=== PATIENT | male | born 1965 | race Caucasian/White ===

== ENCOUNTER 2023-02-06 14:02 | Outpatient (OUT) | payer OTHER, SELFPAY ==
--- NOTE | 2023-02-06 | CONS_ITS ---
CONSULTATION DATE: ??02/06/2023 TO:? Phong Dominguez PA-C CHIEF COMPLAINT:? Includes severe right sided neck pain. HISTORY OF PRESENT ILLNESS:? Review of systems, past medical/surgical history were obtained and documented on the health questionnaire and is available upon request. The patient is 57 years old.? He reports having pain in the above mentioned area since at least July of 2022.? It is described as a severe pressure-like pain with a sharp component.? It is fairly constant.? Seems to increase with activities such as lifting maneuvers, pushing/pulling maneuvers and cervical extension.? He feels most comfortable in the semi-recumbent position.? He is also receiving massage therapy and acupuncture.? Denies any change in bowel and bladder habits or new sensorimotor changes in the upper extremities.? EXAMINATION:? Notable for patient having no clinical radiculopathy or myelopathy involving the lower extremities on today?s visit.? Patient did have severe pain with cervical facet loading maneuvers on the right side at C2-3, C3-4 with associated myofascial spasm of the cervical paravertebral muscles.? IMPRESSION:? Our impression is patient appears to have chronic pain secondary to cervical spondylosis, with facet joint loading pain clinically on the right side at C2-3, C3-4 and associated myofascial spasm. RECOMMENDATIONS:? I have recommended he start Mobic 15 mg daily.? In the past, he has tried naproxen as well as ibuprofen.? He reports he is able to tolerate the naproxen better than ibuprofen, but at times it makes his legs swell and is limited in dosing secondary to the same.? He also reports he is on gabapentin 300 mg b.i.d. and baclofen 10 mg daily p.r.n.? I have asked him to increase his gabapentin to 300 mg t.i.d. and increase his baclofen to 10 mg t.i.d. as tolerated, and to proceed with a diagnostic right sided C2-3, C3-4 facet joint injection under fluoroscopic guidance.? I have asked him to discontinue naproxen and we will initiate aquatic therapy. As part of providing excellent, safe, comprehensive care, the following was completed at our patient's visit: 1. A medication reconciliation and review to ensure accurate knowledge of current/active medications, including asking our patients to inform us about any scya-[id number]-sougdpi medications or herbal remedies/nutritional supplements/alternative remedies. 2. A review to specifically ensure our patients have had annual screening for: elevated body mass index (BMI, see intake chart for exact total), tobacco use, screening for depression, and screening for unhealthy alcohol use.? When screening is concerning, patients are provided with education and the specific recommendation to discuss the concerning health issue and treatment options with their primary care provider. SEBASTIÁN
== END 2023-02-06 14:03 | disposition home or self-care (01) ==
LOC: PM 14:13
PROVIDERS: PCP Physician Assistant; Visit Provider Anesthesiology Pain Medicine
DX: G89.29 Other chronic pain (principal); M47.812 Spondylosis without myelopathy or radiculopathy, cervical region; M54.2 Cervicalgia
CPT/HCPCS: G0463

== ENCOUNTER 2024-10-30 20:11 | Emergency (ER) | payer OTHER, SELFPAY ==
[2024-10-30 20:20] VITALS: BP 139/100; PULSE 87; TEMP 36.4; O2SAT 99; BMI 21.3
--- NOTE | 2024-10-30 20:23 | ED_ITS ---
HPI HPI - General Adult General Chief complaint: Extremity Injury, Lower Stated complaint: FOOT INJURY Time Seen by Provider: 10/30/24 20:20 History of Present Illness HPI narrative: 59-year-old male presents for pain of the dorsum of his right foot. He was sepulveda ging a flat tire in his slippers and when he took the flat tire off it tipped over and fell onto the dorsum of his right foot. No other injury was sustained. He does not complain of pain in the ankle and it hurts more when he puts weight on it. He noted some bruising. Related Data Home Medications ?Medication ?Instructions ?Recorded ?Confirmed albuterol sulfate 90 mcg/actuation 2 inh inhalation Q4H PRN diff 02/06/23 02/06/23 aerosol inhaler (Ventolin HFA) breathing baclofen 10 mg tablet 10 mg PO TID 02/06/23 10/30/24 losartan 50 mg tablet 50 mg PO DAILY 02/06/23 10/30/24 meloxicam 15 mg tablet 15 mg PO DAILY 02/06/23 10/30/24 montelukast 10 mg tablet 10 mg PO DAILY 02/06/23 02/06/23 omeprazole 20 mg capsule,delayed 20 mg PO DAILY 02/06/23 10/30/24 release losartan 100 mg tablet mg 10/30/24 Previous Rx's ?Medication ?Instructions ?Recorded acetaminophen 300 mg-codeine 30 mg 1 tab PO Q6H PRN pain 5 days #20 10/30/24 tablet tabs Allergies Allergy/AdvReac Type Severity Reaction Status Date / Time Sulfa (Sulfonamide Allergy Verified 02/06/23 14:41 Antibiotics) Opioid HPI Opioid Management Most Recent Opioid Data: No Data to Display Review of Systems ROS Narrative A ten point review of systems is negative except as noted above. PFSH PFSH Social History Little interest or pleasure in doing things: not at all Feeling down, depressed, or hopeless: not at all Exam Narrative Exam Narrative: Nurses note and vital signs reviewed and patient is not hypoxic. General: The patient appears in no apparent distress. Patient appears uncomfortable Skin: Warm, dry, no pallor noted. There is no rash noted. Head: Normocephalic, atraumatic Eye: Normal conjunctiva, no drainage Ears, Nose, Mouth, and Throat: oral mucosa is moist. Nares patent. Mouth without vesicles. Ear canals patent. Tm's without Erythema Cardiovascular: Regular Rate and Rhythm Respiratory: Patient is in no distress, no accessory muscle use, lungs are clear to auscultation, no wheezing, rales or rhonchi Back: non-tender GI: Soft and nontender Musculoskeletal: The right foot is examined. The ankle is nontender. He has bruising on the dorsum of his right foot. Skin intact. Tenderness also present. Neurological: A&O, normal speech Psychiatric: Cooperative Constitutional Vital Signs, click to edit/add: Last Vital Signs Temp 97.6 F 10/30/24 20:20 Pulse 87 10/30/24 20:20 Resp 18 10/30/24 20:20 BP 139/100 H 10/30/24 20:20 Pulse Ox 99 10/30/24 20:20 O2 Del Method Room Air 10/30/24 20:20 Course Vital Signs Vital signs: Vital Signs Temperature 97.6 F 10/30/24 20:20 Pulse Rate 87 10/30/24 20:20 Respiratory Rate 18 10/30/24 20:20 Blood Pressure 139/100 H 10/30/24 20:20 Pulse Oximetry 99 10/30/24 20:20 Oxygen Delivery Method Room Air 10/30/24 20:20 Temperature 97.6 F 10/30/24 20:20 Pulse Rate 87 10/30/24 20:20 Respiratory Rate 18 10/30/24 20:20 Blood Pressure 139/100 H 10/30/24 20:20 Pulse Oximetry 99 10/30/24 20:20 Oxygen Delivery Method Room Air 10/30/24 20:20 Medical Decision Making [facility] Narrative Medical decision making narrative: Fourth metatarsal fractures identified, nondisplaced. He is placed in a walking boot, application checked by me and found to be appropriate, he is neurovascular intact. He was given Tylenol 3 here and prescribed same and referred to podiatry. Treatment diagnosis and follow-up were discussed with the patient. He has point tenderness over the distal fourth metatarsal area. Differential Diagnosis Differential Diagnosis: Contusion, fracture Imaging Data Right foot: Radiologist's impression: Dorsal soft tissue swelling overlying the metatarsal bones, possible nondisplaced fracture of the right fourth metatarsal neck Discharge Plan Discharge Chief Complaint: Extremity Injury, Lower Clinical Impression: Closed fracture of fourth metatarsal of right foot Patient Disposition: Home, Self-Care Time of Disposition Decision: 21:36 Condition: Good Mode of Transportation: Private Vehicle Prescriptions / Home Meds: New acetaminophen-codeine 300-30 mg tablet 1 tab PO Q6H PRN (Reason: pain) 5 Days Qty: 20 0RF No Action baclofen 10 mg tablet 10 mg PO TID losartan 50 mg tablet 50 mg PO DAILY omeprazole 20 mg capsule,delayed release(DR/EC) 20 mg PO DAILY albuterol sulfate [Ventolin HFA] 90 mcg/actuation HFA aerosol inhaler 2 inh inhalation Q4H PRN (Reason: diff breathing) montelukast 10 mg tablet 10 mg PO DAILY meloxicam 15 mg tablet 15 mg PO DAILY losartan 100 mg tablet Print Language: Djiboutian Instructions: Foot Fracture in Adults (ED) Additional Instructions: Elevate your foot while you are at home. Apply ice. Referrals: Dajuan Strauss DPM [Physician] - 1 week Phong Dominguez [Primary Care Provider] - 1 week
[2024-10-30] MEDS: ACETAMINOPHEN 300 MG/ 30 MG CODEINE TABLET 1 TAB PO (21:43)
== END 2024-10-30 21:55 | disposition home or self-care (01) ==
PROVIDERS: Emergency Provider Emergency Medicine; PCP Physician Assistant
DX: S92.344A Nondisplaced fracture of fourth metatarsal bone, right foot, initial encounter for closed fracture (principal); W22.8XXA Striking against or struck by other objects, initial encounter
CPT/HCPCS: 73630; 99284

== ENCOUNTER 2025-06-15 07:25 | Emergency (ER) | payer OTHER, SELFPAY ==
--- OUTSIDE RECORDS SUMMARY | 2025-01-26 04:30 | XMS_ITS ---
Author Organization [facility] vices Address [address] [place], [place] [id number] Care Team Providers Care [employer] Vault Supervisor Name Role Phone Shanelle Hooks Primary Care Provider REASON FOR VISIT 4 week Pain Social History Sex Assigned At : Social History Observation Description Sex Assigned At Male Encounters Encounter Location Date Provider Diagnosis Main [address] [place], [place] [id number] 01/26/2025 Shanelle Hooks Plan Of Treatment Next Appt Details Provider Name:Shanelle bonilla, 07/20/2025 08:15:00 AM, [address], [id number], Progress Notes * Freddy MITCHELL CDOB:[birth year] (60 yo M)Acc No.[id number]:01/26/2025 Medical Note Patient: Dwayne JOSEPHFreddy Donnelly :?Shanelle Hooks NP-CDOB:1965???Age:59 Y???Sex:MaleDate:01/26/2025Phone:[phone]:[address] [place] [id number] Subjective: * Chief Complaints: * 1 . 4 week Pain. * Medical History: Objective: * Vitals: Assessment: Plan: * Treatment: * Billing Information: * Visit Code: * Procedure Codes: * Electronic signature of CELESTE Bolanos on 06/15/2025 at 07:33 AM EST Sign off status: Pending * Provider: CELESTE Akers Date: 0 01/26/2025 Generated for Printing/Faxing/eTransmitting on:?06/15/2025 07:33 AM EST
--- OUTSIDE RECORDS SUMMARY | 2025-06-14 15:06 | XMS_ITS | Encounter Summary ---
Author Organization [facility] tem Address [id number] [address] [place] [address] Care Team Providers Care Die Sinker Name Role Phone Services, [facility] Primary Care Provider Reason for Visit * ReasonCommentsBack PainPt c/o left sided lower back pain that radiates down into his hip. However he does also state that his stream of urine does not seem to be as strong as normal Encounter Details DateTypeDepartmentCare Team (Latest Contact Info)Tgfugbluvhp82/02/2025 3:06 PM EST - 06/14/2025 5:18 PM [facility] - Emergency [address] [place] [address] Rufino Sims, [address] [place] [address] Acute left-sided low back pain with left-sided sciatica (Primary Dx) Discharge Disposition: Home Social History Tobacco UseTypesPacks/DayYears UsedDateSmoking Tobacco: FormerSmokeless Tobacco: NeverAlcohol UseStandard Drinks/WeekCommentsNot Currently0 (1 standard drink = 0.6 oz pure alcohol)AUDIT-CAnswerDate RecordedFrequency of Alcohol Consumption Never11/28/2018Average Number of DrinksNot on file11/28/2018Frequency of Binge DrinkingNot on file11/28/2018ChildcareAnswerDate RecordedChildcareUnknown 01/13/2019EmploymentAnswerDate CxbsxdhuVwjeqireerNaadbts68/03/2019Hunger ScreeningAnswerDate RecordedWithin the past 12 months we worried whether our food would run out before we got money to buy more.Never True06/14/2025Within the past 12 months the food we bought just didn't last and we didn't have money to get more.Never True06/14/2025Purpose - LifeAnswerDate RecordedPurpose and direction in mehmMkelgxu33/11/2021ex and Gender InformationValueDate Recorded Sex Assigned at BirthNot on fileLegal XcdPdkx8303/18/2015 11:32 AM EDTGender IdentityNot on fileSexual OrientationNot on filedocumented as of this encounter Last Filed Vital Signs Vital SignReadingTime TakenCommentsBlood Mcqcdiij887/9506/14/2025 3:05 PM EST Yqzvd521206/14/2025 3:05 PM INUWhuefxfxqsr93.8 ??C (98.3 ??F)06/14/2025 3:05 PM ESTRespiratory Gjto601808/14/2024 3:05 PM ESTOxygen Rngupstkbu17%06/14/2025 3:05 PM ESTInhaled Oxygen Concentration--Xspsed07.1 kg (148 lb)06/14/2025 3:05 PM EST Ydvbkp533.3 cm (5' 11 )06/14/2025 3:05 PM ESTBody Mass Index20.6406/14/2025 3:05 PM ESTdocumented in this encounter Discharge Instructions * Discharge Instructions* Kyree Wells MD - 06/14/2025 4:46 PM EST Please take your medications as prescribed. Please take ibuprofen or acetaminophen as needed for pain and/or fever. Please continue oral hydration as well as tolerated. Please follow-up with your primary care provider as needed. Please return to the emergency department if you have new or worsening symptoms. Please call the emergency department if you have any questions or concerns. Thank you for allowing me to participate in your care. * Attachments The following attachments cannot be sent through Care Everywhere. * Low back pain ??? Discharge instructions (Romanian) * Sciatica ??? ED discharge instructions (Romanian) documented in this encounter Medications at Time of Discharge MedicationSigDispense QuantityRefillsLast FilledStart DateEnd Date albuterol (PROVENTIL HFA;VENTOLIN HFA) 90 mcg/actuation inhaler Inhale 2 puffs every 6 (six) hours as needed for wheezing. budesonide-formoterol (SYMBICORT) 160-4.5 mcg/actuation inhaler Inhale 2 puffs 2 (two) times a day. chlorthalidone (HYGROTON) 25 mg tablet Take 25 mg by mouth daily. cyclobenzaprine (FLEXERIL) 10 mg tablet Take 1 tablet (10 mg total) by mouth 2 (two) times a day as needed for muscle spasms. 15 tablet 06/14/2025 lidocaine (SALONPAS) 4 % Place 1 patch on the skin daily. 30 patch 06/14/2025 naproxen (NAPROSYN) 500 mg tablet Take 1 tablet (500 mg total) by mouth in the morning and 1 tablet (500 mg total) in the evening. Take with meals. 30 tablet 09/23/2024documented as of this encounter Plan of Treatment Not on file documented as of this encounter Procedures Procedure NamePriorityDate/TimeAssociated DiagnosisCommentsCT ABDOMEN AND PELVIS W VMOHSMKU35/02/2025 3:57 PM EST EXTRA TUBES BLUE BDZYibvrcn86/02/2025 3:35 PM EST EXTRA TFOJSKsiamyk68/02/2025 3:35 PM EST ER EXTRA URINE TAIPDSSZCZ38/02/2025 3:32 PM EST ER EXTRA URINE UPTUINUYFEZ18/02/2025 3:32 PM EST ER EXTRA IUOCLSDWQ23/02/2025 3:32 PM EST CBC WITH AUTO DJYSROWTWBGIKCCN75/02/2025 3:31 PM EST LIKPWCZQSD14/02/2025 3:31 PM EST COMPREHENSIVE METABOLIC XHTFSNJZQ25/02/2025 3:31 PM EST documented in this encounter Results * CT abdomen and pelvis with contrast (06/14/2025 3:57 PM EST)Anatomical Region LateralityModalityBody, Abdomen, Body CoveraN/AComputed TomographySpecimen (Source)Anatomical Location / LateralityCollection Method / VolumeCollection TimeReceived Time06/14/2025 4:03 PM EST Narrative 06/14/2025 4:05 PM EST STUDY: ABDOMEN AND PELVIS CT WITH CONTRAST CLINICAL HISTORY: Acute abdominal pain Low back pain, left lower abdominal pain, evaluate for stoneversus diverticulitis COMPARISON: 01/04/2025 TECHNIQUE: CT abdomen and pelvis was performed utilizing 5 mm axial reconstructions following the uneventful administration of 100 cc Omnipaque 300 nonionic intravenous contrast. Coronal and sagittalreformatted images were obtained and reviewed. Automated exposure control was utilized. FINDINGS: Abdomen: No pleural or pericardial effusion and lung bases. No lower lung consolidation. The liver, adrenal glands, pancreas and spleen appear unremarkable. Gallbladder is present cholelithiasis. Small bowel not dilated. There are no enlarged mesenteric or retroperitoneal lymph nodes. No renal collecting system dilatation. Small right renal cyst requiring no additional follow-up imaging. Pelvis: No free pelvic fluid. No enlarged pelvic lymph nodes. Urinary bladder grossly unremarkable. No vertebral body height loss. IMPRESSION: 1. No definitive acute abdominal or pelvic process. All CT scans at this facility use dose modulation, iterative reconstruction, and/or weight based dosing when appropriate to reduce radiation dose to as low as reasonably achievable. Finalized by Doug Gao MD on 06/14/2025 4:05 PM Procedure Note Doug Gao MD - 06/14/2025 STUDY: ABDOMEN AND PELVIS CT WITH CONTRAST CLINICAL HISTORY: Acute abdominal pain Low back pain, left lower abdominalpain, evaluate for stone versus diverticulitis COMPARISON: 01/04/2025 TECHNIQUE: CT abdomen and pelvis was performed utilizing 5 mm axial reconstructions following the uneventful administration of 100 ccOmnipaque 300 nonionic intravenous contrast. Coronal and sagittalreformatted images were obtained and reviewed. Automated exposure controlwas utilized. FINDINGS: Abdomen: No pleural or pericardial effusion and lung bases. No lower lung consolidation. The liver, adrenal glands, pancreas and spleen appear unremarkable. Gallbladder is present cholelithiasis. Small bowel not dilated. There are no enlarged mesenteric orretroperitoneal lymph nodes. No renal collecting system dilatation. Small right renal cyst requiring no additional follow-up imaging. Pelvis: No free pelvic fluid. No enlarged pelvic lymph nodes. Urinary bladdergrossly unremarkable. No vertebral body height loss. IMPRESSION: 1. No definitive acute abdominal or pelvic process. All CT scans at this facility use dose modulation, iterativereconstruction, and/or weight based dosing when appropriate to reduceradiation dose to as low as reasonably achievable. Finalized by Doug Gao MD on 06/14/2025 4:05 PM Authorizing ProviderResult TypeResult Ghada Sims DOIMG CT ORDERABLES Final Result * Light Blue Top (06/14/2025 3:35 PM EST)ComponentValueRef RangeTest Method Analysis TimePerformed AtPathologist SignatureExtra TubeAuto Resulted 06/14/2025 5:01 PM ESTPROScripps [facility]cy [facility] (Source) Anatomical Location / LateralityCollection Method / VolumeCollection Time Received TimeBloodVenous blood / Avngird2106/14/2025 3:35 PM EST06/14/2025 3:35 PM EST Narrative Authorizing ProviderResult TypeResult Ghada Sims DOLAB BLOOD ORDERABLESFinal ResultPerforming OrganizationAddressCity/State/ZIP CodePhone Number [address] [address], * Extra Urine [place] (06/14/2025 3:32 PM EST)ComponentValueRef RangeTest Method Analysis TimePerformed AtPathologist SignatureExtra TubeAuto Resulted 06/14/2025 5:01 PM ESTPROScripps [facility] (Source) Anatomical Location / LateralityCollection Method / VolumeCollection Time Received TimeUrineUrine specimen collection, clean catch / Rayjbrq7306/14/2025 3:32 PM EST06/14/2025 4:17 PM EST Narrative Authorizing ProviderResult TypeResult StatusRufino Sims DOURINE ORDERABLES Final ResultPerforming OrganizationAddressCity/State/ZIP CodePhone Number [address] [address], [place] * Extra Urine Culture (06/14/2025 3:32 PM EST)ComponentValueRef RangeTest Method Analysis TimePerformed AtPathologist SignatureExtra TubeAuto Resulted 06/14/2025 5:01 PM EST[facility] (Source) Anatomical Location / LateralityCollection Method / VolumeCollection Time Received TimeUrineUrine specimen collection, clean catch / Gnemqrc1306/14/2025 3:32 PM EST06/14/2025 4:17 PM EST Narrative Authorizing ProviderResult TypeResult StatusRobert W Sims DOURINE ORDERABLES Final ResultPerforming OrganizationAddressCity/State/ZIP CodePhone Number [address] [place] [address], [place] * Extra Urine (06/14/2025 3:32 PM EST)ComponentValueRef RangeTest MethodAnalysis TimePerformed AtPathologist SignatureExtra TubeAuto Ddjsmfah21/02/2025 5:01 PM ESTPROScripps [facility]cy Hospital (Source)Anatomical Location / LateralityCollection Method / VolumeCollection TimeReceived TimeUrineUrine specimen collection, clean catch / Nyckosb5506/14/2025 3:32 PM EST06/14/2025 4:17 PM EST Narrative Authorizing ProviderResult TypeResult StatusRobert W Sims DOURINE ORDERABLES Final ResultPerforming OrganizationAddressCity/State/ZIP CodePhone Number [address] [place] [address], * Lipase (06/14/2025 3:31 PM EST)ComponentValueRef RangeTest MethodAnalysis Time Performed AtPathologist PonrpkfwiYPAXMT3997 - 40 U/L108/14/2024 3:50 PM EST [facility] (Source)Anatomical Location / LateralityCollection Method / VolumeCollection TimeReceived TimeBloodVenous blood / UnknownVenipuncture / Fdqfocn0106/14/2025 3:31 PM EST06/14/2025 3:34 PM EST Narrative Authorizing ProviderResult TypeResult StatusRobert W Sims DOLAB BLOOD ORDERABLESFinal ResultPerforming OrganizationAddressCity/State/ZIP CodePhone Number [facility] [address] [place] [address], * Comprehensive metabolic panel (06/14/2025 3:31 PM EST)ComponentValueRef Range Test MethodAnalysis TimePerformed AtPathologist KmbnewoatTAOSUT360357 - 146 mmol/L108/14/2024 3:53 PM ESTCINCINNATI VA MEDICAL CENTERPOTASSIUM3.93.5 - 5.0 mmol/L108/14/2024 3:53 PM ESTCINCINNATI VA MEDICAL CENTERCHLORIDE [address] - 109 mmol/L108/14/2024 3:53 PM [facility] [place] VIZRHFW1524 - 32 mmol/L108/14/2024 3:53 PM ESTCINCINNATI VA MEDICAL CENTERANION WLL056 - 15 mmol/L108/14/2024 3:53 PM ESTCINCINNATI VA MEDICAL CENTERBLOOD UREA ZNIJZUCF05 - 27 mg/dL06/14/2025 3:53 PM EST [facility]ENTERCREATININE0.830.70 - 1.20 mg/dL06/14/2025 3:53 PM [facility]ENTERComment:METHOD TRACEABLE TO IDMS LTIHYQDHJXWYACB0367 - 99 mg/dL06/14/2025 3:53 PM [facility] CENTERCALCIUM9.18.5 - 10.5 mg/dL06/14/2025 3:53 PM [facility] CENTERTOTAL PROTEIN7.26.0 - 8.0 g/dL06/14/2025 3:53 PM ESTCINCINNATI VA MEDICAL CENTERALBUMIN4.33.2 - 5.3 g/dL06/14/2025 3:53 PM EST [facility]ENTERALKALINE GUOYVVGNWYT9277 - 130 U/L 06/14/2025 3:53 PM ESTCINCINNATI VA MEDICAL CENTERAST25<=41 U/L 06/14/2025 3:53 PM ESTCINCINNATI VA MEDICAL CENTERALT16<=40 U/L 06/14/2025 3:53 PM ESTCINCINNATI VA MEDICAL CENTERBILIRUBIN,TOTAL0.30.3 - 1.2 mg/dL06/14/2025 3:53 PM ESTCINCINNATI VA MEDICAL CENTEREGFR Non- Race Dependent>90>=60 ml/min/1.73sq.m108/14/2024 3:53 PM [facility]ENTERComment: eGFR not reported due to non-numeric value for Creatinine. Reported eGFR is based on the CKD-EPI 2020 equation that does not use a race coefficient. Specimen (Source)Anatomical Location / LateralityCollection Method / Volume Collection TimeReceived TimeBloodVenous blood / UnknownVenipuncture / Unknown 06/14/2025 3:31 PM EST06/14/2025 3:34 PM EST Narrative Authorizing ProviderResult TypeResult StatusRobert W [facility] BLOOD ORDERABLESFinal ResultPerforming OrganizationAddressCity/State/ZIP CodePhone Number [facility] [address] [place] [address], * CBC auto differential (06/14/2025 3:31 PM EST)ComponentValueRef RangeTest MethodAnalysis TimePerformed AtPathologist SignatureWBC8.44 - 11 x10E9/L 06/14/2025 3:46 PM [facility] CENTERRBC Count4.654.1 - 5.7 X10E12/L108/14/2024 3:46 PM [facility] Uzodcsipuz76.313 - 17 g/dL06/14/2025 3:46 PM [facility] CENTERHematocrit43.839 - 50 %06/14/2025 3:46 PM ESTCINCINNATI VA MEDICAL CENTERMCV9480 - 100 fL06/14/2025 3:46 PM ESTCINCINNATI VA MEDICAL CENTERMCH32.827 - 34 pg06/14/2025 3:46 PM ESTCINCINNATI VA MEDICAL CENTERMCHC34.832 - 36 g/dL06/14/2025 3:46 PM [facility]ENTERRDW12.611.5 - 15 %06/14/2025 3:46 PM [facility] CENTERPlatelet Arncf352076 - 450 X10E9/L108/14/2024 3:46 PM EST [facility]ENTERMPV8.77 - 12 fL06/14/2025 3:46 PM EST [facility] HOSPITALNeutrophils %62.3%06/14/2025 3:46 PM EST [facility]ENTERLymphocytes %26.1%06/14/2025 3:46 PM EST [facility] HOSPITALMonocytes %7.2%06/14/2025 3:46 PM EST [facility] HOSPITALEosinophils %3.2%06/14/2025 3:46 PM EST [facility]ENTERBasophils %1.2%06/14/2025 3:46 PM EST [facility] CENTERNeutrophils Absolute (A)5.21.5 - 6.6 10*3/uL06/14/2025 3:46 PM ESTPROBREA COMMUNITY HOSPITALLymphocytes Absolute2.21.0 - 3.5 10*3/uL06/14/2025 3:46 PM ESTPROVA [facility]ENTER HOSPITALMonocytes Absolute0.60.0 - 0.9 10*3/uL06/14/2025 3:46 PM ESTPROVA [facility]ENTER HOSPITALEosinophils Absolute0.30.0 - 0.4 10*3/uL06/14/2025 3:46 PM ESTPROBREA COMMUNITY HOSPITALBasophils Absolute0.10.0 - 0.2 10*3/uL06/14/2025 3:46 PM ESTCINCINNATI VA MEDICAL CENTERDifferential TypeAUTOMATED YCWVFAGBHIQW21/02/2025 3:46 PM ESTSELECT MEDICAL [facility], BEACHWOODpecimen (Source)Anatomical Location / LateralityCollection Method / VolumeCollection TimeReceived TimeBloodVenous blood / UnknownVenipuncture / Wcpcgej7806/14/2025 3:31 PM EST06/14/2025 3:34 PM EST Narrative Authorizing ProviderResult TypeResult StatusRobert W [facility] BLOOD ORDERABLESFinal ResultPerforming OrganizationAddressCity/State/ZIP CodePhone Number [facility] [address] [place] [address], [place] documented in this encounter Visit Diagnoses Diagnosis Acute left-sided low back pain with left-sided sciatica- Primary documented in this encounter Administered Medications Medication OrderMAR ActionAction DateDoseRateSite iohexoL (OMNIPAQUE) 300 mg iodine/mL 100 mL 100 mL, intravenous, Once in imaging, contrast, Starting on 06/14/25 at 1539, For 1 dose, VESICANT (RED) Given06/14/2025 3:48 PM PET628 mL lidocaine (SALONPAS) 4 % 1 patch 1 patch, transdermal, Administer over 12 Hours, Daily, First dose on 06/14/25 at 1643, Apply to intact skin on low back. Patch(es) may remain in place for up to 12 hours in any 24-hour period. Remove previous patch, if present, before applying new. Medication Vlqkoud5906/14/2025 4:47 PM EST1 patchOther morphine injection 4 mg 4 mg, intravenous, Once, On 06/14/25 at 1643, For 1 dose, Look-alike/sound-alike medication - verify indication for use. Given06/14/2025 4:47 PM EST4 mg orphenadrine (NORFLEX) injection 30 mg 30 mg, intramuscular, Once, On 06/14/25 at 1521, For 1 dose, If ordered IV: give over [address] patient in supine position during and for 5-10 minutes following injection. Given06/14/2025 3:29 PM EST30 mgLeft Deltoid sodium chloride 0.9 % flush 10 mL 10 mL, intravenous, As needed, line care, Starting on 06/14/25 at 1539 Given06/14/2025 3:48 PM EST10 mLdocumented in this encounter Active and Recently Administered Medications Due to Daylight Saving Time, this section may contain times in both EDT and EST. Medication Order/ lidocaine (SALONPAS) 4 % 1 patch 1 patch, transdermal, Administer over 12 Hours, Daily, First dose on 06/14/25 at 1643, Apply to intact skin on low back. Patch(es) may remain in place for up to 12 hours in any 24-hour period. Remove previous patch, if present, before applying new. * 1647 (Medication Applied - Provider: Lorne Gaines RN) morphine injection 4 mg (COMPLETED) 4 mg, intravenous, Once, On 06/14/25 at 1643, For 1 dose, Look-alike/sound-alike medication - verify indication for use. * 1647 (Given - Provider: Lorne Gaines RN) orphenadrine (NORFLEX) injection 30 mg (COMPLETED) 30 mg, intramuscular, Once, On 06/14/25 at 1521, For 1 dose, If ordered IV: give over [address] patient in supine position during and for 5-10 minutes following injection. * 1529 (Given - Provider: Lorne Gaines RN) Medication Order//09/2024 iohexoL (OMNIPAQUE) 300 mg iodine/mL 100 mL (COMPLETED) 100 mL, intravenous, Once in imaging, contrast, Starting on 06/14/25 at 1539, For 1 dose, VESICANT (RED) * 1548 (Given - Provider: Mateus Carrillo - Comment: lot [id number], exp 03/05/28) sodium chloride 0.9 % flush 10 mL 10 mL, intravenous, As needed, line care, Starting on 06/14/25 at 1539 * 1548 (Given - Provider: Mateus Carrillo) documented in this encounter Care Teams Team MemberRelationshipSpecialtyStart DateEnd [employer], [address] [place], [place] PCP - GeneralFamily Medicine01/04/25documented as of this encounter
[2025-06-15 07:30] VITALS: BP 160/84; PULSE 81; TEMP 36.8; O2SAT 97; BMI 20.9
--- OUTSIDE RECORDS SUMMARY | 2025-06-15 07:33 | XMS_ITS | Clinical Summary ---
Author Organization [facility] Healthcare Address [address] [place] [address] Care Team Providers Care Optical Effects Layout Person Name Role Phone Unavailable Primary Care Provider Unavailabl e Allergies Active AllergyReactionsCriticalityNoted DateCommentsSulfa AntibioticsHives, Itching,Shortness of uyscueCsgw59/02/2016 Other Reaction(s): Dermatitis, Hives Medications MedicationSigDispense QuantityRefillsLast FilledStart DateEnd DateStatus losartan (Cozaar) 100 MG tablet Take 100 mg by mouth 1 (one) time each day at the same time5Active omeprazole (PriLOSEC) [address] capsule 40 mg 1 (one) time each day at the same timeActive ibuprofen 800 MG tablet 4Active baclofen (Lioresal) 10 MG tablet Take 10 mg by mouth every 12 (twelve) hours5Active celecoxib (CeleBREX) 200 MG capsule Take 200 mg by mouth Daily5Active Active Problems Patient Care Coordination No te Formatting of this note migh t be different from the original. [facility] in [place], [place] No known active problems Family History Medical HistoryRelationNameCommentsHeart attackFatherHeart attackNephewRelation NameStatusCommentsFatherDeceasedNephewAlive Social History Tobacco UseTypesPacks/DayYears UsedDateSmoking Tobacco: FormerCigarettesCigars Smokeless Tobacco: NeverAlcohol UseStandard Drinks/WeekCommentsNot Currently0 (1 standard drink = 0.6 oz pure alcohol)Sex and Gender InformationValueDate RecordedSex Assigned at BirthNot on fileLegal EwwLrov2010/25/2022 8:14 PM EDT Gender IdentityNot on fileSexual OrientationNot on file Last Filed Vital Signs Vital SignReadingTime TakenCommentsBlood Pressure--Pulse--Temperature-- Respiratory Rate--Oxygen Saturation--Inhaled Oxygen Concentration--Bbcxgi84.9 kg (152 lb)12/15/2024 8:27 AM EYSBfaegl129.3 cm (5' 11 )12/15/2024 8:27 AM EDTBody Mass Index21. 8:27 AM EDT Plan of Treatment Not on file Insurance
--- OUTSIDE RECORDS SUMMARY | 2025-06-15 07:33 | XMS_ITS | Clinical Summary ---
Author Organization [facility] tem Address [id number] [address] [place] [address] Care Team Providers Care [place]ra [place]ta Mold Maker Name Role Phone Services, [facility] Primary Care Provider Allergies Active AllergyReactionsCriticalityNoted DateCommentsSulfasalazineDermatitis, Hives,Itching,Shortness Of KjsjyfLlsy36/15/2017 Medications MedicationSigDispense QuantityRefillsLast FilledStart DateEnd DateStatus chlorthalidone (HYGROTON) 25 mg tablet Take 25 mg by mouth daily.Active budesonide-formoterol (SYMBICORT) 160-4.5 mcg/actuation inhaler Inhale 2 puffs 2 (two) times a day.Active albuterol (PROVENTIL HFA;VENTOLIN HFA) 90 mcg/actuation inhaler Inhale 2 puffs every 6 (six) hours as needed for wheezing.Active naproxen (NAPROSYN) 500 mg tablet Take 1 tablet (500 mg total) by mouth in the morning and 1 tablet (500 mg total) in the evening. Take with meals. 30 tablet 5Active cyclobenzaprine (FLEXERIL) 10 mg tablet Take 1 tablet (10 mg total) by mouth 2 (two) times a day as needed for muscle spasms. 15 tablet 5Active lidocaine (SALONPAS) 4 % Place 1 patch on the skin daily. 30 patch 5Active Active Problems ProblemNoted DateDiagnosed DateFlank pain01/04/2025 Encounters DateTypeDepartmentCare YryfGxvsluvxlmb72/02/2025 3:06 PM EST - 06/14/2025 5:18 PM ESTEmergenel [facility] [address] [place] [address] Ruifno Sims DO Acute left-sided low back pain with left-sided sciatica (Primary Dx) Discharge Disposition: Homefrom Last 3 Months Social History Tobacco UseTypesPacks/DayYears UsedDateSmoking Tobacco: FormerSmokeless Tobacco: NeverAlcohol UseStandard Drinks/WeekCommentsNot Currently0 (1 standard drink = 0.6 oz pure alcohol)AUDIT-CAnswerDate RecordedFrequency of Alcohol Consumption Never11/28/2018Average Number of DrinksNot on file11/28/2018Frequency of Binge DrinkingNot on file11/28/2018ChildcareAnswerDate RecordedChildcareUnknown 01/13/2019EmploymentAnswerDate WfiytfpdNxwlyhwwdyJgtydvo02/03/2019Hunger ScreeningAnswerDate RecordedWithin the past 12 months we worried whether our food would run out before we got money to buy more.Never True06/14/2025Within the past 12 months the food we bought just didn't last and we didn't have money to get more.Never True06/14/2025Purpose - LifeAnswerDate RecordedPurpose and direction in zdxwIwzvilg70/11/2021ex and Gender InformationValueDate Recorded Sex Assigned at BirthNot on fileLegal XjaWhur9803/18/2015 11:32 AM EDTGender IdentityNot on fileSexual OrientationNot on file Last Filed Vital Signs Vital SignReadingTime TakenCommentsBlood Nijymmcg351/9506/14/2025 3:05 PM EST Zqlnm304806/14/2025 3:05 PM PSOLlbmcxyjxip98.8 ??C (98.3 ??F)06/14/2025 3:05 PM ESTRespiratory Xkno334808/14/2024 3:05 PM ESTOxygen Dagfcfxhgp71%06/14/2025 3:05 PM ESTInhaled Oxygen Concentration--Rbvimf70.1 kg (148 lb)06/14/2025 3:05 PM EST Knxknt620.3 cm (5' 11 )06/14/2025 3:05 PM ESTBody Mass Index20.641109/2024 3:05 PM EST Plan of Treatment Health MaintenanceDue DateLast DoneCommentsDepression Rqgpyqggm45/13/1976 DTaP,Tdap and Td Vaccines (1 - Tdap)02/22/1983Zoster (Shingles) Vaccine (1 of 2) 02/22/2014Influenza Eafpswv8704/13/2025dult BMI Bhcbngfow25 Tobacco Onzydrhjd72RSV ( or age 60+ yrs) (1 - 1-dose 75+ series)02/22/2039 Medical Devices Not on file Procedures Procedure NamePriorityDate/TimeAssociated DiagnosisCommentsCT ABDOMEN AND PELVIS W DHDVDUSX23/02/2025 3:57 PM EST EXTRA TUBES BLUE YPSZanubtq02/02/2025 3:35 PM EST EXTRA XIXMPRquused08/02/2025 3:35 PM EST ER EXTRA URINE OZBMOVRGKM87/02/2025 3:32 PM EST ER EXTRA URINE NGBTYHTDQZE89/02/2025 3:32 PM EST ER EXTRA TYXNXCANK17/02/2025 3:32 PM EST IYGNIYHSVY74/02/2025 3:31 PM EST COMPREHENSIVE METABOLIC AZKVLNYOA95/02/2025 3:31 PM EST CBC WITH AUTO UYYIVGEZXQHNNUPM10/02/2025 3:31 PM EST from Last 3 Months Results * CT abdomen and pelvis with [...] AtPathologist SignatureExtra TubeAuto Resulted 06/14/2025 5:01 PM ESTPROMercy [facility] Hospital (Source) Anatomical Location / LateralityCollection Method / VolumeCollection Time Received TimeBloodVenous blood / Jkzjdsx5606/14/2025 3:35 PM EST06/14/2025 3:35 PM EST Narrative Authorizing ProviderResult TypeResult Ghada Sims DOLAB BLOOD ORDERABLESFinal ResultPerforming OrganizationAddressCity/State/ZIP CodePhone Number [address] [address], * Extra Urine [place] (06/14/2025 3:32 PM EST)ComponentValueRef RangeTest Method Analysis TimePerformed AtPathologist SignatureExtra TubeAuto Resulted 06/14/2025 5:01 PM [facility]Gu[facility] (Source) Anatomical Location / LateralityCollection Method / VolumeCollection Time Received TimeUrineUrine specimen collection, clean catch / Ehtwrrt1906/14/2025 3:32 PM EST06/14/2025 4:17 PM EST Narrative Authorizing ProviderResult TypeResult StatusRufino Sims DOURINE ORDERABLES Final ResultPerforming OrganizationAddressty/State/ZIP CodePhone Number [address] [address], [place] * Extra Urine Culture (06/14/2025 3:32 PM EST)ComponentValueRef RangeTest Method Analysis TimePerformed AtPathologist SignatureExtra TubeAuto Resulted 06/14/2025 5:01 PM ESTPROMercy General Hospital (Source) Anatomical Location / LateralityCollection Method / VolumeCollection Time Received TimeUrineUrine specimen collection, clean catch / Pwtxjwk5206/14/2025 3:32 PM EST06/14/2025 4:17 PM EST Narrative Authorizing ProviderResult TypeResult StatusRobert W Sims DOURINE ORDERABLES Final ResultPerforming OrganizationAddressCity/State/ZIP CodePhone Number [address] [address], [place] * Extra Urine (06/14/2025 3:32 PM EST)ComponentValueRef RangeTest MethodAnalysis TimePerformed AtPathologist SignatureExtra TubeAuto Gttkvgxn67/02/2025 5:01 PM ESTCOMMUNITY REGIONAL MEDICAL CENTERpecimen (Source)Anatomical Location / LateralityCollection Method / VolumeCollection TimeReceived TimeUrineUrine specimen collection, clean catch / Drmavgl4006/14/2025 3:32 PM EST06/14/2025 4:17 PM EST Narrative Authorizing ProviderResult TypeResult StatusRobert W Sims DOURINE ORDERABLES Final ResultPerforming OrganizationAddressCity/State/ZIP CodePhone Number [address] [address], [place] * CBC auto differential (06/14/2025 3:31 PM EST)ComponentValueRef RangeTest MethodAnalysis TimePerformed AtPathologist SignatureWBC8.44 - 11 x10E9/L 06/14/2025 3:46 PM [facility] SYSTEMRBC Count4.654.1 - 5.7 X10E12/L108/14/2024 3:46 PM [facility] Ovuwfuuhqz29.313 - 17 g/dL06/14/2025 3:46 PM ESTPROGRANADA HILLS COMMUNITY HOSPITALHematocrit43.839 - 50 %06/14/2025 3:46 PM ESTUNIVERSITY HOSPITALS PARMA MEDICAL CENTERMCV9480 - 100 fL06/14/2025 3:46 PM ESTUNIVERSITY HOSPITALS PARMA MEDICAL CENTERMCH32.827 - 34 pg06/14/2025 3:46 PM ESTPROGRANADA HILLS COMMUNITY HOSPITALMCHC34.832 - 36 g/dL06/14/2025 3:46 PM [facility] SYSTEMRDW12.611.5 - 15 %06/14/2025 3:46 PM ESTPROGRANADA HILLS COMMUNITY HOSPITALPlatelet Sipli057903 - 450 X10E9/L108/14/2024 3:46 PM EST [facility] CENTERMPV8.77 - 12 fL06/14/2025 3:46 PM EST [facility] CENTERNeutrophils %62.3%06/14/2025 3:46 PM EST [facility] CENTERLymphocytes %26.1%06/14/2025 3:46 PM EST [facility]ENTERMonocytes %7.2%06/14/2025 3:46 PM EST [facility] HOSPITALEosinophils %3.2%06/14/2025 3:46 PM EST [facility] CENTERBasophils %1.2%06/14/2025 3:46 PM EST [facility] CENTERNeutrophils Absolute (A)5.21.5 - 6.6 10*3/uL06/14/2025 3:46 PM ESTPROGRANADA HILLS COMMUNITY HOSPITALLymphocytes Absolute2.21.0 - 3.5 10*3/uL06/14/2025 3:46 PM ESTPROMEDIST. VINCENT MEDICAL CENTER HOSPITALMonocytes Absolute0.60.0 - 0.9 10*3/uL06/14/2025 3:46 PM ESTPROGRANADA HILLS COMMUNITY HOSPITALEosinophils Absolute0.30.0 - 0.4 10*3/uL06/14/2025 3:46 PM ESTPROGRANADA HILLS COMMUNITY HOSPITALBasophils Absolute0.10.0 - 0.2 10*3/uL06/14/2025 3:46 PM ESTUNIVERSITY HOSPITALS PARMA MEDICAL CENTERDifferential TypeAUTOMATED MRGPXEFEHQHI80/02/2025 3:46 PM ESTPROCOALINGA REGIONAL MEDICAL CENTERpecimen (Source)Anatomical Location / LateralityCollection Method / VolumeCollection TimeReceived TimeBloodVenous blood / UnknownVenipuncture / Tjruivg1006/14/2025 3:31 PM EST06/14/2025 3:34 PM EST Narrative Authorizing ProviderResult TypeResult StatusRobert [facility] BLOOD ORDERABLESFinal ResultPerforming OrganizationAddressCity/State/ZIP CodePhone Number [address] [address], * Lipase (06/14/2025 3:31 PM EST)ComponentValueRef RangeTest MethodAnalysis Time Performed AtPathologist TdcavxjtiTTWMLN4833 - 40 U/L108/14/2024 3:50 PM EST [facility]ENTERpecimen (Source)Anatomical Location / LateralityCollection Method / VolumeCollection TimeReceived TimeBloodVenous blood / UnknownVenipuncture / Pywzvqs6106/14/2025 3:31 PM EST06/14/2025 3:34 PM EST Narrative Authorizing ProviderResult TypeResult StatusRobert [facility] BLOOD ORDERABLESFinal ResultPerforming OrganizationAddressty/State/ZIP CodePhone Number [address] [address], * Comprehensive metabolic panel (06/14/2025 3:31 PM EST)ComponentValueRef Range Test MethodAnalysis TimePerformed AtPathologist ZcnncdxfmPYMQDU186228 - 146 mmol/L108/14/2024 3:53 PM [facility] SYSTEMPOTASSIUM3.93.5 - 5.0 mmol/L108/14/2024 3:53 PM ESTUNIVERSITY HOSPITALS PARMA MEDICAL CENTERCHLORIDE [address] - 109 mmol/L108/14/2024 3:53 PM [facility] [place] BHSLAGB4303 - 32 mmol/L108/14/2024 3:53 PM ESTUNIVERSITY HOSPITALS PARMA MEDICAL CENTERANION IXK139 - 15 mmol/L108/14/2024 3:53 PM ESTUNIVERSITY HOSPITALS PARMA MEDICAL CENTERBLOOD UREA IBGNBIMH48 - 27 mg/dL06/14/2025 3:53 PM EST [facility] CENTERCREATININE0.830.70 - 1.20 mg/dL06/14/2025 3:53 PM [facility] SYSTEMComment:METHOD TRACEABLE TO IDMS OXLEQGMUHBTSKGK2517 - 99 mg/dL06/14/2025 3:53 PM ESTUNIVERSITY HOSPITALS PARMA MEDICAL CENTERCALCIUM9.18.5 - 10.5 mg/dL06/14/2025 3:53 PM ESTUNIVERSITY HOSPITALS PARMA MEDICAL CENTERTOTAL PROTEIN7.26.0 - 8.0 g/dL06/14/2025 3:53 PM ESTUNIVERSITY HOSPITALS PARMA MEDICAL CENTERALBUMIN4.33.2 - 5.3 g/dL06/14/2025 3:53 PM EST [facility] CENTERALKALINE EDPWKBMLPNO8550 - 130 U/L 06/14/2025 3:53 PM ESTPROGRANADA HILLS COMMUNITY HOSPITALAST25<=41 U/L 06/14/2025 3:53 PM ESTUNIVERSITY HOSPITALS PARMA MEDICAL CENTERALT16<=40 U/L 06/14/2025 3:53 PM ESTUNIVERSITY HOSPITALS PARMA MEDICAL CENTERBILIRUBIN,TOTAL0.30.3 - 1.2 mg/dL06/14/2025 3:53 PM ESTUNIVERSITY HOSPITALS PARMA MEDICAL CENTEREGFR Non- Race Dependent>90>=60 ml/min/1.73sq.m108/14/2024 3:53 PM ESTUNIVERSITY HOSPITALS PARMA MEDICAL CENTERComment: eGFR not reported due to non-numeric value for Creatinine. Reported eGFR is based on the CKD-EPI 2020 equation that does not use a race coefficient. Specimen (Source)Anatomical Location / LateralityCollection Method / Volume Collection TimeReceived TimeBloodVenous blood / UnknownVenipuncture / Unknown 06/14/2025 3:31 PM EST06/14/2025 3:34 PM EST Narrative Authorizing ProviderResult TypeResult StatusRobert W [facility] BLOOD ORDERABLESFinal ResultPerforming OrganizationAddressCity/State/ZIP CodePhone Number [facility] [address] [place] [address], from Last 3 Months Insurance Advance Directives * Full Code (Latest Code Status on File) Date ActivatedDate InactivatedComments01/04/2025 11:35 AM01/04/2025 3:16 PM Care Teams Team MemberRelationshipSpecialtyStart DateEnd Date Services, [facility] [address] [place], [place] PCP - GeneralFamily Medicine01/04/25
--- OUTSIDE RECORDS SUMMARY | 2025-06-15 07:33 | XMS_ITS | Clinical Summary ---
Author Organization [facility] Address [address], [address] [place] [address] Care Team Providers Care Fork Truck Driver Name Role Phone Zev Yadav MD Primary Care Provider [phone] Allergies Active AllergyReactionsCriticalityNoted DateCommentsSulfa AntibioticsHives, Shortness Of Breath,Itching,JhnxozlmpvNiqm14/02/2016 Medications MedicationSigDispense QuantityRefillsLast FilledStart DateEnd DateStatus ALPRAZolam (XANAX) 0.5 MG tablet Take 0.5 mg by mouth 3 times daily as avdbqk6512/13/2015Active clobetasol (TEMOVATE) 0.05 % cream 12/09/2015Active escitalopram (LEXAPRO) 20 MG tablet Take 20 mg by mouth daily12/07/2015Active traMADol (ULTRAM) 50 MG tablet Take 50 mg by mouth 3 times daily as luebly0312/13/2015Active hydrocortisone 2.5 % cream Apply topically 2 times daily Apply topically 2 times daily.Active mupirocin (BACTROBAN) 2 % ointment Apply 3 times daily. 1 Tube Active predniSONE (DELTASONE) 10 MG tablet 10 mg daily05/07/2016Active Family History Medical HistoryRelationNameCommentsCancerBrotherCoronary Art DisFatherRelation NameStatusCommentsBrotherDeceasedFatherDeceasedMotherAlive Social History Tobacco UseTypesPacks/DayYears UsedDateSmoking Tobacco: FormerSmokeless Tobacco: NeverAlcohol UseStandard Drinks/WeekCommentsNo0 (1 standard drink = 0.6 oz pure alcohol)sober 13 yearsSex and Gender InformationValueDate RecordedSex Assigned at BirthNot on fileLegal PpcVwgu70/05/2013 9:36 PM ESTGender IdentityNot on file Sexual OrientationNot on file Last Filed Vital Signs Vital SignReadingTime TakenCommentsBlood Ctuqplns592/8206/09/2016 8:49 AM EDT Xmnxv935506/09/2016 8:49 AM YRJCcyqdusmdav41.4 ??C (97.6 ??F)06/09/2016 8:49 AM EDTRespiratory Mcmx467805/09/2016 9:02 AM EDTOxygen Saturation--Inhaled Oxygen Concentration--Roitzo44.2 kg (174 lb 11.2 oz)06/09/2016 8:49 AM LOFJtymti182.3 cm (5' 11 )05/09/2016 9:02 AM EDTBody Mass Index24.37005/09/2016 9:02 AM EDT Plan of Treatment Not on file Insurance Care Teams Team MemberRelationshipSpecialtyStart DateEnd Date Zev Yadav MD PCP - GeneralInternal Medicine02/03/16
--- OUTSIDE RECORDS SUMMARY | 2025-06-15 07:37 | XMS_ITS | CCD ---
Author Organization [facility] Care Team Providers Care [employer] Player Name Role Phone YUNIER MITCHELL Unavailable Unavailable YUNIER MITCHELL Unavailable Unavailable YUNIER MITCHELL Unavailable Unavailable MISC, DOCTOR Unavailable Unavailable Patsy Kaiser Unavailable Unavailable Primary Care Provider UnavailMORGAN Suazo Attending Unavailable MORGAN RICKS Attending Unavailable MORGAN RICKS Referring Unavailable Services, [facility] Primary Care Provider SERVICES, [facility] Care Unava ilable SONIA JUAREZ Attending Unavailable SERVICES, [facility] Unava ilable KUN MNAJARREZ Attending Unavailable ROBEL ELLSWORTH Admitting Unavailable SERVICES, [facility] Unava ilable ARLET TURCIOS Attending Unavailable Allergies Allergy ClassificationReported Allergen(s)Allergy TypeDate of OnsetReaction(s) Facility (1 source)Sulfonamides (Antibiotic)Drug allergy (disorder)19-09-2830OFNJRWjdAshtabula [facility] (5 sources)Substance with sulfonamide structure and antibacterial mechanism of action (substance)Drug jhqedbu11-54-5152Psxvs, Itching, Shortness of breathNOWA Healthcare (2 sources)sulfaSALAzine; Translations: [SULFASALAZINE]Drug Gpczwaa07-25-9972 Dermatitis, Hives, Itching, Shortness Of BreathUC [facility] Medications Current Medications MedicationDrug Class(es)DatesSig (Normalized)Sig (Original)[id number] 200 actuat albuterol 0.09 mg/actuat metered dose inhaler (2 sources)beta2-Adrenergic Agonisttake 2 puff(s) by inhalation every six hours as needed for wheezingalbuterol (PROVENTIL HFA;VENTOLIN HFA) 90 mcg/actuation inhaler Inhale 2 puffs every 6 (six) hours as needed for wheezing. Activetake 2 puff(s) by inhalation every four hours as neededVentolin HFA 108 (90 Base) MCG/ACT 2 puff as needed Inhalation every 4 hrs Activebaclofen 10 mg oral tablet (5 sources)gamma-Aminobutyric Acid-ergic AgonistStart: 51-84-1505njio 1 tablet by mouth every twelve hoursbaclofen (Lioresal) 10 MG tablet Take 10 mg by mouth every 12 (twelve) hours 10/20/2024 ActiveBaclofen 10 MG/20ML as directed Intrathecal ActiveBudesonide / formoterol (1 source)Corticosteroid, beta2-Adrenergic Agonisttake 2 puff(s) by inhalation twice dailybudesonide-formoterol (SYMBICORT) 160-4.5 mcg/actuation inhaler Inhale 2 puffs 2 (two) times a day.Activecelecoxib 200 mg oral capsule (2 sources)Nonsteroidal Anti-inflammatory DrugStart: 67-59-6068ywtl 1 capsule by mouth once dailycelecoxib (CeleBREX) 200 MG capsule Take 200 mg by mouth Daily 11/10/2024 ActiveCentrum Silver - (1 source)Centrum Silver - as directed Orally Activechlorthalidone 25 mg oral tablet (1 source)Thiazide-like Diuretictake 1 tablet by mouth once dailychlorthalidone (HYGROTON) 25 mg tablet Take 25 mg by mouth daily. Activegabapentin 300 mg oral capsule (1 source)Anti-epileptic Agenttake 1 capsule by mouth every twelve hours Gabapentin 300 MG 1 capsule Orally bid Activeibuprofen 800 mg oral tablet (4 sources)Nonsteroidal Anti-inflammatory DrugStart: 37-72-8729tmhuoxbof 800 MG tablet 06/22/2024 Activeketoconazole 20 mg/ml topical cream (5 sources)Azole AntifungalStart: 11-03-2024 End: 08-61-2277nkdtjvfdrugg (NIZOral) 2 % cream Indications: Tinea pedis of left foot Apply topically Daily 30 g 11/26/2024 12/26/2024 Activelidocaine 0.05 mg/mg medicated patch (1 source)Antiarrhythmic, Amide Local AnestheticStart: 21-03-4321Iwrpzsjwt 5 % 1 patch remove after 12 hours Externally Once a day for 30 days December, Activelosartan potassium 100 mg oral tablet (5 sources)Angiotensin 2 Receptor BlockerStart: 79-88-7658rcaw 1 tablet by mouth once dailylosartan (Cozaar) 100 MG tablet Take 100 mg by mouth 1 (one) time each day at the same time 10/20/2024 Activetake 1 tablet by mouth every twenty- four hoursLosartan Potassium 50 MG 1 tablet Orally Once a day Activenaproxen 500 mg oral tablet (2 sources)Nonsteroidal Anti-inflammatory DrugStart: 29-39-3894vpew 1 tablet by mouth in the morning, then take 1 tablet by mouth at mealtimenaproxen (NAPROSYN) 500 mg tablet Take 1 tablet (500 mg total) by mouth in the morning and 1 tablet (500 mg total) in the evening. Take with meals. 30 tablet 09/23/2024 Activetake 1 tablet by mouth every twelve hours at mealtime as neededNaproxen 500 MG 1 tablet with food or milk as needed Orally every 12 hrs Activeomeprazole 40 mg delayed release oral capsule (5 sources)Proton Pump Inhibitoromeprazole (PriLOSEC) [address] capsule 40 mg 1 (one) time each day at the same time Activetake 1 capsule by mouth once daily Omeprazole 20 MG 1 capsule 30 minutes before morning meal Orally Once a day ActivepredniSONE 10 mg oral tablet (1 source)Start: 24-82-0693lhyigqYIVT 10 MG Take 3 tablets by mouth for 3 days then 2 tablets by mouth for 3 days then 1 tablet by mouth for 3 days Orally Once a day for December, ActivetiZANidine 4 mg oral tablet (1 source)Central alpha-2 Adrenergic AgonisttiZANidine HCl 4 MG 1 tablet as needed Orally at night Active Problems Active Problems Problem ClassificationProblemDateDocumented DateEpisodic/ChronicEsophageal disorders (1 source)Gastro-esophageal reflux disease without esophagitis; Translations: [GERD WITHOUT ESOPHAGITIS]Onset: 90-45-0720WwvprxsSgunktkth hypertension (1 source)Essential (primary) hypertension; Translations: [ESSENTIAL PRIMARY HYPERTENSION]Onset: 49-48-8330HkqmqinFrsavczq of lower limb (2 sources)Closed fracture of fourth metatarsal bone of right foot; Translations: [Nondisplaced fracture of fourth metatarsal bone, right foot, subsequent encounter for fracture with routine healing]72-59-3513JcdnxxjvKirsybb (3 sources)Tinea pedis; Translations: [Tinea pedis]25-99-2840NegrkpfjGmkpo connective tissue disease (2 sources)Pain in right foot; Translations: [Pain in right foot]12-15-2024 EpisodicScreening and history of mental health and substance abuse codes (1 source)Encounter for screening for depressionEpisodicSpondylosis; intervertebral disc disorders; other back problems (4 sources)Radiculopathy, cervical region; Translations: [Cervicalgia]Onset: 11-28-5643OrhwomffFivpvekmuwvo (1 source)Knee InjuryOnset: 10-80-0051Sagjramehnkb (1 source)Fall, Knee PainOnset: 09-23-2024 Past or Other Problems Problem ClassificationProblemDateDocumented DateEpisodic/ChronicAbdominal pain (3 sources)Flank pain; Translations: [Unspecified abdominal pain]Onset: [id number]tnmp tract disease (1 source)Calculus of gallbladder without cholecystitis without obstruction; Translations: [Calculus of gallbladder without cholecystitis without obstruction]Onset: 42-95-5489XdxbnughLooab infections (4 sources)Scabies; Translations: [SCABIES]Onset: 69-19-4494TiixjrfrZdwxfcwlrvh injury; contusion (1 source)Contusion of unspecified knee, initial encounter; Translations: [Contusion of unspecified knee, initial encounter]Onset: 99-94-3237Gtjvsjzs NEGATED: Highlighted row has been ruled out!Unclassified (3 sources)No known active unmyxgkk11-62-9548 Results Test NameValueInterpretationReference RangeFacilityCBC WITH AUTO DIFFERENTIALon 66-05-3811TKHOSTJDA ABSOLUTE COUNT (10*3/UL) BY AUTOMATED COUNT0.1 10*3/uLNormal 0.0-0.2Pro[facility] Oakland Medical CenterComment on above:Performed By: #### CBCA #### [facility] ([facility] [address] [place] [address] [place] [address] VIRBASOPHILS RELATIVE PERCENT BY AUTOMATED COUNT1.2 %Normal [facility] CenterComment on above:Performed By: #### CBCA #### [facility] ([address] [place] [address] VIRCELLAVISION DIFFERENTIAL TYPEAUTOMATED DIFFERENTIALNormal [facility] Medical CenterComment on above:Performed By: #### CBCA #### [facility] ([address] [place] [address] VIREosinophils (Bld) [#/Vol]0.3 10*3/uLNormal0.0-0.4[facility] Medical CenterComment on above:Performed By: #### CBCA #### [facility] ([address] [address] VIREOSINOPHILS RELATIVE PERCENT BY AUTOMATED COUNT3.2 %Normal [facility] CenterCommunson healthcare grayling hospital on above:Performed By: #### CBCA #### [facility] ([address] [address] VIRErythrocyte distribution width (RBC) [Ratio]12.6 %Normal 11.5-15[facility] Medical CenterComment on above:Performed By: #### CBCA #### [facility] ([address] [place] [address] VIRHematocrit (Bld) [Volume fraction]43.8 %Ugyspm48-36 [facility] CenterComment on above:Performed By: #### CBCA #### [facility] ([address] [place] [address] VIRHemoglobin (Bld) [Mass/Vol]15.3 g/aPOxfslv35-48AhfCkfnifNortheast Baptist HospitalComment on above:Performed By: #### CBCA #### [facility] ([address] [place] [address] VIRLYMPHOCYTES ABSOLUTE COUNT (10*3/UL) BY AUTOMATED COUNT2.2 10*3/uLNormal1.0-3.5PWilson Memorial HospitalComment on above:Performed By: #### CBCA #### [facility] ([address] [place] [address] VIRLYMPHOCYTES RELATIVE PERCENT BY AUTOMATED COUNT26.1 %Normal [facility] Medical CenterComment on above:Performed By: #### CBCA #### [facility] ([address] [place] [address] VIRMCH (RBC) [Entitic mass]32.8 ymObxryd52-00TpkEehjffNortheast Baptist HospitalComment on above:Performed By: #### CBCA #### [facility] ([address] [place] [address] VIRMCHC (RBC) [Mass/Vol]34.8 g/bKTvyoyk45-07BmmMremtqNortheast Baptist HospitalComment on above:Performed By: #### CBCA #### [facility] ([address] [place] [address] VIRMCV (RBC) [Entitic vol]94 eHYcksoe79-475MqnCvggtt [place] HospitalComment on above:Performed By: #### CBCA #### [facility] ([address] [place] [address] VIRMONOCYTES ABSOLUTE COUNT (10*3/UL) BY AUTOMATED COUNT0.6 10*3/uLNormal0.0-0.9[facility] Medical CenterComment on above:Performed By: #### CBCA #### [facility] ([address] [place] [address] VIRMONOCYTES RELATIVE PERCENT BY AUTOMATED COUNT7.2 %Normal [facility] Medical CenterComment on above:Performed By: #### CBCA #### [facility] ([address] [place] [address] VIRNEUTROPHILS ABSOLUTE COUNT BY AUTOMATED COUNT5.2 10*3/uL Normal1.5-6.6[facility] Medical CenterComment on above:Performed By: #### CBCA #### [facility] ([facility]) [address] [place] [address]. [place] [address] VIRNEUTROPHILS RELATIVE PERCENT BY AUTOMATED COUNT62.3 %Normal [facility] Medical CenterComment on above:Performed By: #### CBCA #### [facility] ([address] [place] [address] VIRPlatelet mean volume (Bld) [Entitic vol]8.7 fLNormal7-12 [facility] CenterComment on above:Performed By: #### CBCA #### [facility] ([address] [place] [address] VIRPlatelets (Bld) [#/Vol]298 10*3/gSHvtxsh166-967JabGvcjua [facility] HospitalComment on above:Performed By: #### CBCA #### [facility] ([address] [place] [address] VIRRBC COUNT4.65 X10E12/LNormal4.1-5.7ProNortheast Baptist HospitalComment on above:Performed By: #### CBCA #### [facility] ([address] [place] [address] VIRWBC (Bld) [#/Vol]8.4 10*3/uLNormal4-11ProNortheast Baptist HospitalComment on above:Performed By: #### CBCA #### [facility] ([address] [place] [address] VIRCOMPREHENSIVE METABOLIC PANELon 85-68-9001Rwtjngp [Mass/Vol]4.3 g/dLNormal3.2-5.3PWilson Memorial HospitalComment on above: Performed By: #### CMP #### [facility] ([place] [address] [place] [address] VIRALP [Catalytic activity/Vol]70 U/UPmxwdf12-430MztIohmfaNortheast Baptist HospitalComment on above:Performed By: #### CMP #### [facility] ([place] [address] [place] [address] VIRALT [Catalytic activity/Vol]16 U/LNormal<=40ProNortheast Baptist HospitalComment on above:Performed By: #### CMP #### [facility] ([place] [address] [place] [address] VIRAnion gap [Moles/Vol]11 mmol/LNormal5-15ProNortheast Baptist HospitalComment on above:Performed By: #### CMP #### [facility] ([place] [address] [place] [address] VIRAST [Catalytic activity/Vol]25 U/LNormal<=41ProNortheast Baptist HospitalComment on above:Performed By: #### CMP #### [facility] ([place] [address] [place] [address] VIRBilirubin [Mass/Vol]0.3 mg/dLNormal0.3-1.2PWilson Memorial HospitalComment on above:Performed By: #### CMP #### [facility] ([place] [address] [place] [address] VIRCalcium [Mass/Vol]9.1 mg/dLNormal8.5-10.5PWilson Memorial HospitalComment on above:Performed By: #### CMP #### [facility] ([place] [address] [place] [address] VIRChloride [Moles/Vol]102 mmol/EZvruke05-677BwoQszgksNortheast Baptist HospitalComment on above:Performed By: #### CMP #### [facility] ([place] [address] [place] [address] VIRCO2 [Moles/Vol]25 mmol/RBrgssq53-21MirZdefwx [facility] HospitalComment on above:Performed By: #### CMP #### [facility] ([address] [place] [address] VIRCreatinine [Mass/Vol]0.83 mg/dLNormal0.70-1.20ProNortheast Baptist HospitalComment on above:Result Comment: METHOD TRACEABLE TO IDMS STANDARDPerformed By: #### CMP #### [facility] ([address] [place] [address] VIREGFR (CKD-EPI) NON-RACE DEPENDENT>^90Normal>=60ProNortheast Baptist HospitalComment on above:Result Comment: eGFR not reported due to non- numeric value for Creatinine. Reported eGFR is based on the CKD-EPI 2020 equation that does not use a race coefficient.Performed By: #### CMP #### [facility] ([address] [place] [address] VIRGlucose [Mass/Vol]96 mg/gISymdiy51-26YljUnqpcsNortheast Baptist HospitalComment on above:Performed By: #### CMP #### [address] [place] [address] VIRPotassium [Moles/Vol]3.9 mmol/LNormal3.5-5.0[facility] Medical CenterComment on above:Performed By: #### CMP #### [address] [place] [address] VIRProtein [Mass/Vol]7.2 g/dLNormal6.0-8.0ProNortheast Baptist HospitalComment on above:Performed By: #### CMP #### [address] [place] [address] VIRSodium [Moles/Vol]138 mmol/AKfkkhh889-780OvjKhdqgr [facility] HospitalComment on above:Performed By: #### CMP #### [facility] ([facility]) [address] [place] [address] [place] [address] VIRUrea nitrogen [Mass/Vol]8 mg/dLNormal01-06[facility] on above:Performed By: #### CMP #### [facility] ([address] [place] [address] VIRCT ABDOMEN AND PELVIS W CONTon 58-57-2349JB ABDOMEN AND PELVIS W CONTCT ABDOMEN AND PELVIS W CONT STUDY: ABDOMEN AND PELVIS CT WITH CONTRAST [...] by Doug Gao MD on 06/14/2025 4:05 PMNormalProNortheast Baptist HospitalLIPASEon 75-24-1875Dizjms [Catalytic activity/Vol]38 U/UMjsrlz18-90 [facility] on above:Performed By: #### LIPA #### [facility] ([facility]) [address] [place] [address] [place] [address] VIRCBC WITH AUTO DIFFERENTIALon 14-21-8889YKGNSPAVA ABSOLUTE COUNT (10*3/UL) BY AUTOMATED COUNT0.1 10*3/uLNormal0.0-0.2ProMedLoma Linda University Medical Center-EastComment on above:Performed By: #### CBCA #### [facility] ([address] [place] [address] VIRBASOPHILS RELATIVE PERCENT BY AUTOMATED COUNT0.8 %Normal [facility] CenterComment on above:Performed By: #### CBCA #### [facility] ([address] [address] VIRCELLAVISION DIFFERENTIAL TYPEAUTOMATED DIFFERENTIALNormal [facility] Medical CenterComment on above:Performed By: #### CBCA #### [address] [address] VIREosinophils (Bld) [#/Vol]0.2 10*3/uLNormal0.0-0.4[facility] Medical CenterComment on above:Performed By: #### CBCA #### [facility] ([address] [address] VIREOSINOPHILS RELATIVE PERCENT BY AUTOMATED COUNT3.1 %Normal [facility] Medical CenterComment on above:Performed By: #### CBCA #### [address] [place] [address] VIRErythrocyte distribution width (RBC) [Ratio]12.6 %Normal 11.5-15[facility] Medical CenterComment on above:Performed By: #### CBCA #### [facility] ([address] [address] VIRHematocrit (Bld) [Volume fraction]44.3 %Xkyxeq31-24 [facility] CenterComment on above:Performed By: #### CBCA #### [facility] ([address] [address] VIRHemoglobin (Bld) [Mass/Vol]15.8 g/yWBavqjl99-71TxbAufhnkNortheast Baptist HospitalComment on above:Performed By: #### CBCA #### [facility] ([address] [place] [address] VIRLYMPHOCYTES ABSOLUTE COUNT (10*3/UL) BY AUTOMATED COUNT1.5 10*3/uLNormal1.0-3.5PWilson Memorial HospitalComment on above:Performed By: #### CBCA #### [facility] ([address] [place] [address] VIRLYMPHOCYTES RELATIVE PERCENT BY AUTOMATED COUNT21.4 %Normal [facility] CenterComment on above:Performed By: #### CBCA #### [facility] ([address] [place] [address] VIRMCH (RBC) [Entitic mass]33.4 wfAchejm76-91SylQhoblnNortheast Baptist HospitalComment on above:Performed By: #### CBCA #### [facility] ([address] [place] [address] VIRMCHC (RBC) [Mass/Vol]35.7 g/xYFrjcrm92-35RcaPjarteNortheast Baptist HospitalComment on above:Performed By: #### CBCA #### [facility] ([address] [place] [address] VIRMCV (RBC) [Entitic vol]93 mBVunimo85-503HqdFcdyti [facility] HospitalComment on above:Performed By: #### CBCA #### [facility] ([address] [place] [address] VIRMONOCYTES ABSOLUTE COUNT (10*3/UL) BY AUTOMATED COUNT0.5 10*3/uLNormal0.0-0.9[facility] CenterComment on above:Performed By: #### CBCA #### [facility] ([facility]) [address] [place] [address] [place] [address] VIRMONOCYTES RELATIVE PERCENT BY AUTOMATED COUNT7.9 %Normal [facility] CenterComment on above:Performed By: #### CBCA #### [facility] ([address] [place] [address] VIRNEUTROPHILS ABSOLUTE COUNT BY AUTOMATED COUNT4.6 10*3/uL Normal1.5-6.6[facility] Medical CenterComment on above:Performed By: #### CBCA #### [facility] ([address] [place] [address] VIRNEUTROPHILS RELATIVE PERCENT BY AUTOMATED COUNT66.8 %Normal [facility] CenterComment on above:Performed By: #### CBCA #### [facility] ([address] [place] [address] VIRPlatelet mean volume (Bld) [Entitic vol]8.8 fLNormal7-12 [facility] CenterComment on above:Performed By: #### CBCA #### [facility] ([address] [place] [address] VIRPlatelets (Bld) [#/Vol]277 10*3/nKYhlnqn581-380LfwXhaicb [facility] HospitalComment on above:Performed By: #### CBCA #### [facility] ([address] [place] [address] VIRRBC COUNT4.74 X10E12/LNormal4.1-5.7ProNortheast Baptist HospitalComment on above:Performed By: #### CBCA #### [facility] ([address] [place] [address] VIRWBC (Bld) [#/Vol]6.9 10*3/uLNormal4-11ProNortheast Baptist HospitalComment on above:Performed By: #### CBCA #### [facility] ([place] [address] [place] [address] VIRCOMPREHENSIVE METABOLIC PANELon 80-29-2133Xgafcyi [Mass/Vol]4.6 g/dLNormal3.2-5.3PWilson Memorial HospitalComment on above: Performed By: #### CMP #### [facility] ([address] [address] VIRALP [Catalytic activity/Vol]98 U/MMqfnco10-995FasRezfkgNortheast Baptist HospitalComment on above:Performed By: #### CMP #### [facility] ([address] [place] [address] VIRALT [Catalytic activity/Vol]19 U/LNormal<=40ProNortheast Baptist HospitalComment on above:Performed By: #### CMP #### [address] [place] [address] VIRAnion gap [Moles/Vol]5 mmol/LNormal5-15ProNortheast Baptist HospitalComment on above:Performed By: #### CMP #### [facility] ([address] [place] [address] VIRAST [Catalytic activity/Vol]25 U/LNormal<=41ProNortheast Baptist HospitalComment on above:Performed By: #### CMP #### [facility] ([place] [address] [place] [address] VIRBilirubin [Mass/Vol]1.1 mg/dLNormal0.3-1.2PWilson Memorial HospitalComment on above:Performed By: #### CMP #### [address] [place] [address] VIRCalcium [Mass/Vol]9.0 mg/dLNormal8.5-10.5PSaint Joseph Hospital HospitalComment on above:Performed By: #### CMP #### [facility] ([facility]) [address] [place], [place] [address] [address] VIRChloride [Moles/Vol]98 mmol/ZVfjeeo31-718AkoXgcmktNortheast Baptist HospitalComment on above:Performed By: #### CMP #### [facility] ([facility]) [address] [place], [place] [address] [place] [address] VIRCO2 [Moles/Vol]28 mmol/BXkvuta80-53HbjTnwkgb [facility] CenterComment on above:Performed By: #### CMP #### [facility] ([address] [place] [address] VIRCreatinine [Mass/Vol]0.95 mg/dLNormal0.70-1.20ProNortheast Baptist HospitalComment on above:Result Comment: METHOD TRACEABLE TO IDMS STANDARDPerformed By: #### CMP #### [facility] ([address] [place] [address] VIREGFR (CKD-EPI) NON-RACE DEPENDENT>^90Normal>=60ProNortheast Baptist HospitalComment on above:Result Comment: eGFR not reported due to non- numeric value for Creatinine. Reported eGFR is based on the CKD-EPI 2021 equation that does not use a race coefficient.Performed By: #### CMP #### [facility] ([address] [place] [address] VIRGlucose [Mass/Vol]127 mg/bMYyuv51-82QxcLppbekNortheast Baptist HospitalComment on above:Performed By: #### CMP #### [facility] ([address] [place] [address] VIRPotassium [Moles/Vol]3.6 mmol/LNormal3.5-5.0ProNortheast Baptist HospitalComment on above:Performed By: #### CMP #### [facility] ([address] [address] VIRProtein [Mass/Vol]7.1 g/dLNormal6.0-8.0ProNortheast Baptist HospitalComment on above:Performed By: #### CMP #### [facility] ([address] [place] [address] VIRSodium [Moles/Vol]131 mmol/WOng616-138IqbWenprfNortheast Baptist HospitalComment on above:Performed By: #### CMP #### [facility] ([address] [place] [address] VIRUrea nitrogen [Mass/Vol]14 mg/dLNormal5-23ProNortheast Baptist HospitalComment on above:Performed By: #### CMP #### [facility] ([address] [place] [address] VIRCT ABDOMEN AND PELVIS WO CONTon [id number] ABDOMEN AND PELVIS WO CONTCT ABDOMEN AND PELVIS WO CONT CLINICAL INFORMATION: R flank pain, concern for stone. TECHNIQUE: CT Abdomen and Pelvis without intravenous contrast. All CT scans at this facility use dose modulation, iterative reconstruction, and/or weight based dosing when appropriate to reduce radiation dose to as low as reasonably achievable. COMPARISON: CT abdomen pelvis 11/22/2022 FINDINGS: Lung bases are unremarkable. The liver, spleen, pancreas, and adrenal glands are unremarkable. Cholelithiasis. No biliary dilatation. No renal collecting system dilatation or stones. Bladder is decompressed limiting evaluation. Pelvic organs are unremarkable. Sigmoid diverticulosis. No bowel obstruction or inflammatory changes. Mobile cecum positioned in the left midabdomen. No evidence of appendicitis. No small bowel distention. Stomach is unremarkable. No free fluid or free air. The abdominal aorta is normal in course and caliber. Mild atheromatous vascular calcifications. No enlarged lymph nodes. Probable postsurgical changes of a left inguinal hernia repair. Mild degenerative changes in the spine. No aggressive osseous lesions. IMPRESSION: * No acute process in the abdomen or pelvis. * Cholelithiasis. * Mobile cecum positioned in the left abdomen. Finalized by Greg Tian MD on 01/04/2025 9:20 AMNormalProNortheast Baptist HospitalLACTATE W/ REFLEXon [id number] W/REFLEX0.9 mmol/LNormal0.4-2.0 [facility] CenterComment on above:Order Comment: Result did not trigger repeat Lactate, re-order if needed.Performed By: #### LACTS #### [facility] ([address] [place] [address] VIRLIPASEon [id number] [Catalytic activity/Vol]39 U/L Asmafe88-89CyoRrvwqmMetroHealth Main Campus Medical CenterComment on above:Performed By: #### LIPA #### [facility] ([address] [place] [address] VIRPOCT NURSING URINE MACROSCOPIC UAon [id number] JACK NegativeNormalNegativeMetroHealth Main Campus Medical CenterComment on above:Performed By: #### NUM #### [address] [place] [address] VIRBLOOD/HGB NURNegativeNormalNegativeMetroHealth Main Campus Medical CenterComment on above:Performed By: #### NUM #### [facility] ([address] [place] [address] VIRGLUCOSE NURNegativeNormalNegMercy Health St. [facility] Comment on above:Performed By: #### NUM #### [facility] ([address] [place] [address] VIRKETONES NUR15 mg/dLAbnormalNegativeMetroHealth Main Campus Medical CenterComment on above:Performed By: #### NUM #### [facility] ([address] [place] [address] VIRLEUKOCYTE ESTERASE NURNegativeNormalNegativeMetroHealth Main Campus Medical CenterComment on above:Performed By: #### NUM #### [facility] [address] [place] [address] VIRNITRITE NURNegativeNormalNegativeTrinity [facility] Comment on above:Performed By: #### NUM #### [facility] ([address] [place] [address] VIRPH NUR7.9Qctykk5.0, 6.0, 6.5, 7.0, 7.5, 8.0, 8.5, 5.5 [facility] CenterComment on above:Performed By: #### NUM #### [facility] ([address] [address] VIRPROTEIN NUR30 mg/dLAbnoUniversity Hospitals Elyria Medical CenterComment on above:Performed By: #### NUM #### [facility] ([address] [address] VIRSPECIFIC GRAVITY NUR1.369Nkyeoz8.010, 1.015, 1.020, 1.025 [facility] CenterComment on above:Performed By: #### NUM #### [facility] ([address] [address] VIRUROBILINOGEN NUR1.0 E.U./dLNoProMedica Defiance Regional Hospital Comment on above:Performed By: #### NUM #### [facility] ([address] [address] VIRXR Foot - right 3 Viewson 27-43-1240Gqazved Result: AP, medial oblique, lateral views are weight-bearing. Fracture of the 4th metatarsal still very well aligned. There appears to be new callus formation consistent with healing fracture. No shift or malalignment noted. No other fractures noted.[facility] HealthcareRadiology Study observation (narrative)[facility] CenterXR KNEE LT 3 VWSon [id number] KNEE LT 3 VWSXR KNEE LT 3 VWS History: Fall. Follow-up left knee trauma. Exam/Technique: 3 views of the left knee. Comparison: 08/27/2018 Findings: Prior patellar fracture and hardware fixation. On today's examination there has been further distraction of previously noted thin through the lateral aspect of the femoral fracture fixation. Indeterminate time course. Calcifications of the quadriceps tendon suggesting chronic disease. Similar chondrocalcinosis and degenerative change with medial more so than lateral compartment narrowing. IMPRESSION: * Degenerative change without definitive acute abnormality. * Previous patellar fracture with further distraction of previously noted patellar pin 2019 exam. Indeterminate time course. No clear suggestion of acute onset. Finalized by Fabiano Mayorga DO on 09/23/2024 9:17 AMNormalMetroHealth Main Campus Medical Center Vital Signs Date TimeVital SignValuePerforming LvaynjciwTsznmbyf71-95-0314 08:27-0400Body saxacp628.3 cmAcrowcarri Rusher DPM Work Phone: [phone] [place] [address] Ovaxxqelih78-82-5735 08:27-0400Body mass index (BMI) [Ratio]21.2 kg/u0Suyhbhp CloudMedxher DPM Work Phone: [phone] [place] [address] Hpozbogzbt47-99-0794 08:27-0400Body yepiwn86.95 kgAnthony CloudMedxher DPM Work Phone: MailWriterGnuyldugyb62-03-9452 11:40-0400Body gzhisn893.26 cmUn[employer] Other [employer] Other 05-09-2023 11:40-0400Body mass index (BMI) [Ratio] 21.56 kg/f9DjkeyofUniKey Technologies Other [employer] Other Phone: [phone] 11:40-0400Body .23 kgUniKey Technologies Other [employer] Other 05-09-2023 11:40-0400Diastolic blood tzhmvpec30 mm[Hg] [employer] Other [employer] Other 05-09-2023 11:40-8975FpX1% (BldA) [Mass fraction] [employer] Other [employer] Other 05-09-2023 11:40-0400Systolic blood bqrdifov179 mm[Hg] Patsy Kaiser Other [employer] Other Encounters Encounter DateEncounter TypeCare ProviderFacilityStart: 06-14-2025 End: 20-82-8961Mwxljzywq department patient visitPrairie Lakes Hospital & Care Centertart: 01-12-2025 End: 65-01-8897Vjllobrwo encounterMicjanina Hansen DO Work Phone: [facility] SurgeryStart: 01-04-2025 End: 78-38-9595iqqeuzjlndVNPLMIYFYLakeHealth [facility] Start: 12-15-2024 End: 64-58-2423Qrllva flowsheetAnthony S Rusher DPM Work Phone: [facility] PODIATRYStart: 12-15-2024 End: 56-54-1704Xhsevw flowsheetAnthony S Rusher DPM Work Phone: [facility] PODIATRYStart: 12-15-2024 End: 26-10-3491Kvvwbb outpatient visit 15 minutesAnthony S Rusher DPM Work Phone: [facility] PODIATRYComment on above:Closed nondisplaced fracture of fourth metatarsal bone of right foot with routine healing, subsequen t encounter (Primary Dx); Right foot pain; Tinea pedis of left footStart: 12-15-2024 End: 22-00-2868kxnrkgghtzUYADJCH S RUSHERNot AvailableStart: 11-26-2024 End: 14-85-5513Yvstbutbw encounterAnthony S Rusher DPM Work Phone: [facility] PODIATRYComment on above:Advice Only (Rxs Refill Request)Start: 11-03-2024 End: 22-25-0497oprhrcllhsVIBMKKL S RUSHERNot AvailableStart: 09-23-2024 End: 00-53-2369Xnvnutkbd department patient visitPrairie Lakes Hospital & Care Centertart: 12-19-2022 End: 58-60-3812gfummglhbrCcngqqj [employer] Other [employer] Other start: 03-63-2226Yidwou outpatient new 45 minutes Patsy KaiserFPG [facility] NeurosurgeryStart: 05-30-2017 End: 70-45-0428EmtxhfndfzTJCM R SMITHFacility:H1 Procedures DateProcedureProcedure DetailPerforming ClinicianStart: 75-64-3786Mlevh foot complete minimum 3 viewsMorgan Ricks DPM Work Phone: Plan of Treatment DateCare ActivityDetailAuthorStart: 30-25-4318Wuinx BMI ScreeningAdult BMI ScreeningUC Medical Center SystemStart: 68-57-8411Spbjtbh ScreeningTobacco ScreeningProRegency Hospital Cleveland East SystemStart: 86-19-4637Ayqxahcbx vaccinationInfluenza VaccineUC Medical Center SystemStart: 01-26-2025 End: 95-07-2036Yxylmjj encounter zlwaovrva13/16/2025 8:30 AM EDT Office Visit [facility] [address] [place] [id number] Morgan Ricks, DPM [address] [place] [address] [facility] PODIATRYStart: 12-15-2024 End: 31-95-2566Kumksft encounter procedureNOMS PODIATRYComment on above: ArrivedStart: 60-20-3654Rrxynmrclpvova of varicella zoster vaccineZoster (Shingles) Vaccine (1 of 2)[facility] SystemStart: 39-98-1110FIwC,Tdap and Td Vaccines (1 - Tdap)DTaP,Tdap and Td Vaccines (1 - Tdap)[facility] SystemStart: 50-69-6425Czqlfzdnpq ScreeningDepression ScreeningUC Medical Center System Payers DatePayer CategoryPayerPolicy ID2017Medicaid (Managed Care)[facility] [employer] [id number] 2003Medicaid [facility] [place] Member Subscriber Plan / Payer (Effective 2003-Present) Name: Freddy MitchellNasim Jackson Relation to Subscriber: Self Name: Freddy Mitchell Payer ID: [id number] (NAIC) Group ID: Type: Not on file Address: [address] [id number] [id number] [id number] 2..[id number] 2..[id number] 2..[id number] Social History DateTypeDetailFacilityStart: 09-23-2020 End: 08-93-6285Dvl Assigned At BirthM[facility] Puzl SystemStart: 11-28-2018 End: 46-14-2908Rwafwbo smoking status NHISEx-smokerNOMS HealthcareHistory of tobacco useCurrent smokerNOMS HealthcareHistory of tobacco useCigarette Smoker [facility] HealthcareHistory of tobacco useCigar SmokerNOMS HealthcareStart: 11-28-2018 End: 26-06-2012Vqhhpsa use and exposureSmokeless tobacco non-userNOMS Healthcare Start: 11-03-2024 End: 18-70-6181Gxkgmzxzu beverage intakeEx-drinker (finding)[facility] Start: 09-23-2020 End: 71-13-5521Jrewyaf of Social functionUC Medical Center SystemStart: 35-41-9613Zae assigned at birthNot on fileNOMS HealthcareFrequency of Alcohol ConsumptionNeverUC Medical Center SystemStart: 57-37-2952LleMgbv (finding) [facility] Note 01-12-2025 Note Date & WqykMabaVabjajup17-29-2879 Miscellaneous Notes* Telephone Encounter - Geno Jaffe - 01/12/2025 9:08 AM EDT Freddy called the office to cancel his 01/13/[address] Hansen as patient fills that hehas other health issues that are more pressing and wants to discuss with his PCP. [facility] 01-12-2025 Note Date & MwsmMomjWelfqdcp66-41-8142 Telephone encounter Note* Telephone Encounter - Geno Jaffe - 01/12/2025 9:08 AM EDT Freddy called the office to cancel his 01/13/[address] Hansen as patient fills that hehas other health issues that are more pressing and wants to discuss with his PCP. [facility] History of Present illness Narrative 12-15-2024 Note Date & ExlyMglvVzquutyy82-61-9571 History of Present illness Narrative* Morgan Dwayne Ricks, DPM - 12/15/2024 8:45 AM EDT Images from the original note were not included. Subjective Patient ID: Freddy Mitchell is a 59 y.o. male who presents for Follow-up (Established pt presents today for 6 week fuv, after fx, pt relates doing well, pt states there is burning sensation under toes near ball area. Pt states he will wear boot if he has to walk for a while. Pt states the rash on his feet is slowly getting better. ). HPI Date of injury 10/30/2024: Right 4th metatarsal fracture Patient presents to clinic for follow up evaluation of right 4th metatarsal fracture. Patient has not been wearing his boot and has been ambulating around the house without the boot. He states that he wears the boot occasionally when he leaves the house. He states that the foot is feeling better but he still has a occasional sharp pain. Patient also here for follow up of suspected tinea pedis bilaterally. He has been using topical ketoconazole with significant improvement. Review of Systems Constitutional: Positive for activity change. Negative for appetite change. Respiratory: Negative for chest tightness and shortness of breath. Cardiovascular: Negative for chest pain. Musculoskeletal: Positive for arthralgias and gait problem. Skin: Positive for color change and rash. Negative for wound. Neurological: Negative for weakness and numbness. Psychiatric/Behavioral: Negative for agitation and behavioral problems. Hematological: Does not bruise/bleed easily. Endocrine: Negative for cold intolerance and heat intolerance. Allergic/Immunologic: Negative for immunocompromised state. Past medical History Past Medical History: Diagnosis Date Acid reflux Hypertension ([facility]) Medications Current Outpatient Medications: baclofen (Lioresal) 10 MG tablet, Take 10 mg by mouth every 12 (twelve) hours, Disp: , Rfl: celecoxib (CeleBREX) 200 MG capsule, Take 200 mg by mouth Daily, Disp: , Rfl: ketoconazole (NIZOral) 2 % cream, Apply topically Daily, Disp: 30 g, Rfl: 0 losartan (Cozaar) 100 MG tablet, Take 100 mg by mouth 1 (one) time each day at the same time, Disp:, Rfl: omeprazole (PriLOSEC) [address] capsule, 40 mg 1 (one) time each day at the same time, Disp: , Rfl: ibuprofen 800 MG tablet, , Disp: , Rfl: Allergies Sulfa antibiotics Past Surgical History Past Surgical History: Procedure Laterality Date HERNIA REPAIR PATELLA FRACTURE SURGERY Left 1982 WRIST FRACTURE SURGERY Left 2014 Family History Family History Problem Relation Name Age of Onset Heart attack Father Heart attack Nephew Objective Physical Exam Constitutional: Comments: Presents to clinic ambulating unassisted in slippers. HENT: Head: Normocephalic and atraumatic. Cardiovascular: Pulses: Normal pulses. Pulmonary: Effort: Pulmonary effort is normal. No respiratory distress. Abdominal: Palpations: There is no mass. Musculoskeletal: Cervical back: No rigidity. Comments: Right foot: There is continued isolated tenderness to the 4th metatarsal. Mild edema still noted to the forefoot. Ecchymosis largely resolved. Skin: Capillary Refill: Capillary refill takes less than 2 seconds. Findings: No lesion. Comments: There remains a small erythematous, scaling patch along the medial heel and plantar foot in a moccasin distribution bilaterally. There is subjective pruritus. No drainage. Scaling has improved since last visit. Neurological: Mental Status: He is alert. Comments: No loss of protective sensation, gross sensation intact. Psychiatric: Mood and Affect: Mood normal. Behavior: Behavior normal. XR foot 3+ views right Imaging Result: AP, medial oblique, lateral views are weight-bearing. Fracture of the 4th metatarsal still very well aligned. There appears to be new callus formation consistent with healing fracture. No shift or malalignment noted. No other fractures noted. 10/30/2024: 3 radiographs from [facility] are nonweightbearing. Reveal impacted fracture of the 4th metatarsal shaft. No angulation or displacement. Alignment is acceptable. No other fracturesor dislocations noted. Assessment/Plan ICD-10-CM 1. Closed nondisplaced fracture of fourth metatarsal bone of right foot with routine healing, subsequent encounter S92.344D XR foot 3+ views right 2. Right foot pain M79.671 XR foot 3+ views right 3. Tinea pedis of left foot B35.3 Patient examined and evaluated. Reviewed previous imaging studies. Repeated 3 radiographs of the right foot in office and discussed my findings. Fracture appears to be healing. There has been no shift in the position or alignment of the fracture. At this time he has transition out of the fracture boot of his own accord. I recommend that he continue to wear the fracture boot during times of heavy walking or standing. Otherwise he can wear supportive shoes. Follow up in 6 weeks. Radiographs of the right foot necessary at that time only if he is continuing to have issues. Erythematous rash bilaterally continues to improve with topical ketoconazole. He has done 1 course of oral Lamisil for 2 weeks and did note some significant improvement. He continues with topical ketoconazole. I recommend that he continue to apply this daily. Consider biopsy in the future if it stops responding to the antifungal. We could also consider repeating oral Lamisil in the future if it continues to be a problem. This note was created with the assistance of a speech recognition program. While intending to generate a timely document that accurately reflects the content of the visit, no guarantee can be provided that every grammatical or spelling mistake has been or will be identified or corrected. Thank you for your understanding. Morgan Ricks DPM documented in this encounterBo[facility] Center Tele[facility] encounter Note 11-26-2024 Note Date & VtgxWtwxIjkdcrpu05-10-0283 Telephone encounter Note* Telephone Encounter - Aaron Parr - 11/26/2024 8:38 AM EDT Pt called stating that the took the 14-day supply of the terbinafine medication and it is working out well for him. Patient also says he is using up the topical cream as he is using it 2-3 times a day. Pt wanted me to ask you to refill both of these medications to [place]. [facility] Note 11-26-2024 Note Date & YrewYwauNjmcviqv61-04-7050 Miscellaneous Notes* Telephone Encounter - Aaron Parr - 11/26/2024 8:38 AM EDT Pt called stating that the took the 14-day supply of the terbinafine medication and it is working out well for him. Patient also says he is using up the topical cream as he is using it 2-3 times a day. Pt wanted me to ask you to refill both of these medications to [place] pharmacy. documented in this encounterBoone Hospital Center Evaluation note 12-19-2022 Note Date & PiofBiecWmpjxmgp92-08-7961 Evaluation note* Encounter Date Diagnosis Assessment Notes Treatment Notes Treatment Clinical Notes December, Cervical radiculopathy at C7 (IC D-10 - M54.12) I independently reviewed the x-ray and MRI of the cervical spine and which shows there is anterior osteophyte formation throughout the cervical spine as well as mild disc height loss of the C5-C6 andC6-C7. At C5-C6 there is a broad-based disc bulge with moderate left and moderate neuroforaminal narrowing. C6-7 there is a disc bulge with moderate left neural foraminal narrowing. C7 there is moderate neuroforaminal narrowing without spinal canal narrowing. Overall multilevel degenerative changes. Not consistant with right sided radiculopathy. In which I wIll order EMG. Will order a steroid taper. Will refer to pain management Dr miles. Follow-up once EMG is completed. Medical decision making shows a new problem to me with further workup planned or suggested with the potential for extensive treatment options that were considered with the most applicable given this patient's situation as noted above. Treatment options considered include a combination of physical therapy approaches, pharmacologic management, and interventional procedures. Those most applicable to the patient were discussed at this time. Risk of complications and/or morbidity and mortality is high given that acute and chronic pain poses a threat to life and bodily function if undertreated, poorly treated or with failure to maintain adequate treatment and timely follow up. Given the serious and fluctuating nature of pain with extensive consideration for whenever pain changes, there always remains the possibility of prolonged functional impairment requiring constant patient reassessment and high-level medical decision making. The amount and complexity of data reviewed is moderate given that patient labs, radiology reports, and other test were obtained, reviewed and summarized as applicable from the physician portal and/or outside medical records. Pertinent positive and negative findings were considered in medical decision-making. December,ervical pain (neck) (ICD-10 - M54.2) [facility] (ICD-10 - Z13.31)PHQ reviewed score 0 negative screening [employer] [facility] [employer] Other Evaluation note Note Date & TypeNoteFacilityEvaluation note* Diagnosis Tinea pedis of left foot documented in this encounter [facility] Evaluation note Note Date & TypeNoteFacilityEvaluation note* Diagnosis Closed nondisplaced fracture of fourth metatarsal bone of right foot with routine healing, subsequent encounter- Primary Right foot pain Pain in soft tissues of limb Tinea pedis of left foot documented in this encounter [facility] History general Narrative - Reported Note Date & TypeNoteFacilityHistory general Narrative - Reported* Type Description Date Medical History Arthritis Medical HistoryAsthmaMedical Historykidney stonesMedical Historyanxiety [facility] [employer] Other Instructions Note Date & TypeNoteFacilityInstructionsNot on filedocumented in this encounter [facility] Summary Purpose Family History No Family History Records FoundNo Family History Records FoundNo Family History Records Found Advance Directives No Advanced Directives Records Found Date ActivatedDate InactivatedComments01/04/2025 11:35 AM01/04/2025 3:16 PM Reason for Referral Reason EMG - Bilat UE Diagnosis 1 Cervical radiculopat hy at C7 (M54.12) Referral Organization [facility] Referring Provider First Name Patsy Referring Provider Last Name Kaiser Referring Provider Specialty Nurse Pract itioner Referred Organization [facility] Referred Provider Tra Ang Referred Address [address] [place] [place], [place],[address] Referred Provider Specialty Neurology Referral Priority Routine General Notes Frances Olsen M 023 02:04:26 PM >Received today and waiting for office notes to be locked before sending referral Reason evaluate and tr eat Diagnosis 1 Cervical radiculopat hy at C7 (M54.12) Referral Organization [facility] Referring Provider First Name Patsy Referring Provider Last Name Kaiser Referring Provider Specialty Nurse Pract itioner Referred Organization [facility] Pain Managemen t Referred Provider Willie Miles Referred Address [address],[place] [address] ,[place],[address] Referred Provider Specialty Pain Medicin e Referral Priority Routine General Notes Frances Olsen 023 12:16:45 PM >Received today and sent P2P Additional Source Comments (unrecognized sect ion and content) No Status Records FoundNo Status Records FoundNo Status Records Found INFORMATION SOURCE (unrecogn ized section and content) DATE CREATED AUTHOR 02/08/2018 [facility] DATE CREATED AUTHOR AUTHOR'S ORGANIZ ATION 12/18/2024 [facility] DATE CREATED AUTHOR AUTHOR'S ORGANIZ ATION 06/14/2025 [facility] REASON FOR VISIT (unrecogniz ed section and content) ReasonOnset DateCommentsAdvice Only11/26/2024Rxs Refill RequestReasonComments Follow-upEstablished pt presents today for 6 week fuv, after fx, pt relates doing well, pt states there is burning sensation under toes near ball area. Pt states he will wear boot if he has to walk for a while. Pt states the rash on his feet is slowly getting better. Care Teams (unrecognized sec tion and content) Team MemberRelationshipSpecialtyStart DateEnd [facility] [address] [place], [place] PCP - GeneralFamily Medicine01/04/25 FOR RECORDS PERTAINING TO PATIENTS WHO ARE OR HAVE BEEN ENROLLED IN A CHEMICAL DEPENDENCY/SUBSTANCEABUSE PROGRAM, SOME INFORMATION MAY BE OMITTED. This clinical summary was aggregated from multiple sources. Caution should be exercised in using it in the provision of clinical care. This summary normalizes information from multiple sources, and as a consequence, information in this document may materially change the coding, format and clinical context of patient data. In addition, data may be omitted in some cases. CLINICAL DECISIONS SHOULD BE BASED ON THE PRIMARY CLINICAL RECORDS. [employer] provides no warranty or guarantee of the accuracy or completeness of information in this document.
--- NOTE | 2025-06-15 08:17 | ED_ITS ---
HPI HPI - Back Pain/Injury General Chief Complaint: Back Pain/Injury Stated Complaint: BACK PAIN Time Seen by Provider: 06/15/25 07:35 Source: patient Mode of arrival: walk-in Limitations: no limitations History of Present Illness HPI Narrative: The patient is 60-year-old male presenting to the ER after he was already evaluated in [place] ER for back pain yesterday when he had a full workup to rule out any kidney stone and it was negative, was diagnosed with sciatica he presents to the ER today because he did not have any pain medications from [place], the patient was provided with a Flexeril prescription that he did not refill he have pain in his back going down to his knee with no weakness no numbness no tingling and he mentioned that the pain is burning-like, no incontinence of urine or stool and there is no exacerbating factor except for the fact that he changed his mattress recently from an air mattress to a regular mattress, The patient denies any other symptoms Related Data Home Medications ?Medication ?Instructions ?Recorded ?Confirmed albuterol sulfate 90 mcg/actuation 2 inh inhalation Q4 H PRN diff 02/06/23 02/06/23 aerosol inhaler (Ventolin HFA) breathing losartan 50 mg tablet 50 mg PO DAILY 02/06/2310/12 montelukast 10 mg tablet 10 mg PO DAILY 02/06/2301/12 omeprazole 20 mg capsule,delayed 20 mg PO DAILY 10/30/24 release losartan 100 mg tablet mg 10/30/24 Previous Rx's ?Medication ?Instructions ?Recorded diclofenac sodium 75 mg 75 mg PO BID PRN pain #20 ta bs 06/15/25 tablet,delayed release Allergies Allergy/AdvReac Type Severity Reaction Status Date / Time Sulfa (Sulfonamide Allergy Intermediate Hives Verified 06/15/25 07:40 Antibiotics) Review of Systems ROS Status of ROS 10 or more systems reviewed and unremark able except as noted in history and below PFSH PFSH Social History Little interest or pleasure in doing things: not at all Feeling down, depressed, or hopeless: not at all Exam Narrative Exam Narrative: Nurses notes and vital signs reviewed and patient is not hypoxic. General: Well-appearing and in no apparent distress. Skin: Warm, dry, no pallor noted. No rash. Head: Normocephalic, atraumatic. Neck: Supple, non-tender. Cardiovascular: Regular Rate and Rhythm without murmur, gallop or rub. Respiratory: No accessory muscle use or respiratory distress. Lungs are clear to auscultation, no wheezing, rales or rhonchi Chest Wall: no tenderness Back: No midline thoracic or lumbar vertebral tenderness. No CVA tenderness the patient pain is limited to the buttock area going down to his hip as well as the posterior aspect of the knee Musculoskeletal: normal ROM, no calf or popliteal tenderness, no lower extremity edema/swelling GI: Abdomen is soft, non-distended. Normal bowel sounds. No masses appreciated. No tenderness to palpation. No rebound, guarding, or rigidity noted. Neurological: A&O x4. No cranial nerve dysfunction observed. No truncal ataxia. Moves all extremities. Sensation intact. Psychiatric: Cooperative and interactive. Normal mood and affect. Constitutional Vital Signs, click to edit/add: Last Vital Signs Temp 98.2 F 06/15/25 07:30 Pulse 81 06/15/25 07:30 Resp 18 06/15/25 07:30 BP 160/84 H 06/15/25 07:30 Pulse Ox 97 06/15/25 07:30 O2 Del Method Room Air 06/15/25 07:30 Course Vital Signs Vital signs: Vital Signs Temperature 98.2 F 06/15/25 07:30 Pulse Rate 81 06/15/25 07:30 Respiratory Rate 18 06/15/25 07:30 Blood Pressure 160/84 H 06/15/25 07:30 Pulse Oximetry 97 06/15/25 07:30 Oxygen Delivery Method Room Air 06/15/25 07:30 Temperature 98.2 F 06/15/25 07:30 Pulse Rate 81 06/15/25 07:30 Respiratory Rate 18 06/15/25 07:30 Blood Pressure 160/84 H 06/15/25 07:30 Pulse Oximetry 97 06/15/25 07:30 Oxygen Delivery Method Room Air 06/15/25 07:30 MDM - Back Pain/Injury MDM Narrative Medical decision making narrative: The patient presentation is mostly secondary to sciatica and I did review his workup done in [place] ER including a CAT scan of the abdomen pelvis with contrast that showed no acute pathology and the blood workup showing normal kidney function The patient right now will be discharged home with Toradol injection as well as prednisone and they are discharged home to continue using Flexeril in addition to Voltaren and referred to primary care for physical therapy and further assessment Patient educated about alarming symptoms that will bring him back to the ER The patient to follow-up with the primary care within 2 to 3 days and to come back to the ER in case of any worsening of the current symptoms or any new symptoms or concerns Discharge Plan Discharge Chief Complaint: Back Pain/Injury Clinical Impression: Sciatica Patient Disposition: Home, Self-Care Time of Disposition Decision: 08:19 Condition: Good Prescriptions / Home Meds: New diclofenac sodium 75 mg tablet,delayed release (DR/EC) 75 mg PO BID PRN (Reason: pain) Qty: 20 0RF Discontinued baclofen 10 mg tablet 10 mg PO TID meloxicam 15 mg tablet 15 mg PO DAILY acetaminophen-codeine 300-30 mg tablet 1 tab PO Q6H PRN (Reason: pain) 5 Days Qty: 20 0RF No Action losartan 50 mg tablet 50 mg PO DAILY omeprazole 20 mg capsule,delayed release(DR/EC) 20 mg PO DAILY albuterol sulfate [Ventolin HFA] 90 mcg/actuation HFA aerosol inhaler 2 inh inhalation Q4H PRN (Reason: diff breathing) montelukast 10 mg tablet 10 mg PO DAILY losartan 100 mg tablet Print Language: Vincentian Instructions: Sciatica (ED) Additional Instructions: Please take all medication with food not on empty stomach Come back to the ER in case of any worsening of the symptoms Referrals: [facility] [Primary Care Provider, Unknown] - 1 week
[2025-06-15] MEDS: ORPHENADRINE 60 MG/2 ML VIAL IM (08:20)
[2025-06-15] MEDS: KETOROLAC TROMETHAMINE 30 MG/ML VIAL IM (08:21)
[2025-06-15] MEDS: PREDNISONE 20 MG TABLET 40 MG PO (08:21)
== END 2025-06-15 08:30 | disposition home or self-care (01) ==
PROVIDERS: Emergency Provider Emergency Medicine
DX: M54.30 Sciatica, unspecified side (principal)
CPT/HCPCS: 96372; 99284; J1885; J2360; J7512